=== PATIENT | female | born 1995 | race Caucasian/White ===

== ENCOUNTER 2017-06-03 09:23 | Emergency (ER) | payer OTHER ==
[~2017-06-03] VITALS: Ht 167.6 cm; Wt 99.8 kg
[2017-06-03 09:47] LABS: BILIRUBIN,URINE NEGATIVE (NEGATIVE); KETONES,URINE NEGATIVE (NEGATIVE); LEUKOCYTE ESTERASE ,URINE 1+ (NEGATIVE); NITRITE,URINE NEGATIVE (NEGATIVE); PH,URINE 6.5 (5-9); PROTEIN,URINE 2+ (NEGATIVE); UROBILINOGEN,URINE NORMAL (NORMAL)
[2017-06-03 09:55] LABS: WBC,URINE RARE /HPF
[2017-06-03] MEDS ORDERED: [UNRECOGNIZED DRUG - OTHER] (10:06)
[2017-06-03] MEDS ORDERED: AMIT10TA6 PO (10:06)
[2017-06-03] MEDS ORDERED: BUTA1CAP39 PO (10:06)
[2017-06-03] MEDS ORDERED: BIRTHCONTROL (10:06)
[2017-06-03 10:22] LABS: BASOPHILS % (AUTO) 0 % (0-10); EOSINOPHILS # (AUTO) 0.2 10^3/uL (0.0-0.3); EOSINOPHILS % (AUTO) 2 % (0-10); LYMPHOCYTES % (AUTO) 23 % (12-44); MEAN CORPUSCULAR HEMOGLOBIN 30 PG (25-34); MEAN CORPUSCULAR HGB CONC 34 G/DL (32-36); MEAN CORPUSCULAR VOLUME 89 FL (80-99); MEAN PLATELET VOLUME 9.9 FL (7.4-10.4); MONOCYTES # (AUTO) 0.4 X 10^3 (0.0-1.0); MONOCYTES % (AUTO) 5 % (0-12); NEUTROPHILS # (AUTO) 5.8 X 10^3 (1.8-7.8); NEUTROPHILS % (AUTO) 69 % (42-75); PLATELET COUNT 232 10^3/uL (130-400); RED CELL DISTRIBUTION WIDTH 12.2 % (10.0-14.5); WHITE BLOOD COUNT 8.4 10^3/uL (4.3-11.0)
[2017-06-03 10:34] LABS: ALANINE AMINOTRANSFERASE 22 U/L (0-55); ALBUMIN 3.8 GM/DL (3.2-4.5); ANION GAP 8 MMOL/L (5-14); ASPARTATE AMINO TRANSFERASE 21 U/L (5-34); BILIRUBIN,TOTAL 0.3 MG/DL (0.1-1.0); BLOOD UREA NITROGEN 8 MG/DL (7-18); BUN/CREATININE RATIO 13; CALCIUM 8.9 MG/DL (8.5-10.1); CARBON DIOXIDE 22 MMOL/L (21-32); CHLORIDE 109 MMOL/L (98-107); CREATININE SERUM 0.64 MG/DL (0.60-1.30); GFR ESTIMATED > 60; GLUCOSE 98 MG/DL (70-105); POTASSIUM 4.1 MMOL/L (3.6-5.0); SODIUM 139 MMOL/L (135-145); TOTAL PROTEIN 7.4 GM/DL (6.4-8.2)
[2017-06-03 10:49] LABS: ERYTHROCYTE SEDIMENTATION RATE 15 MM/HR (0-20)
[2017-06-03] MEDS ORDERED: KETOROLAC 30 MG/ML VIAL IVP ONE (11:30)
--- NOTE | 2017-06-03 11:41 | Diagnostic Imaging Report ---
INDICATION: Left-sided back pain x2 days with no known injury.. TECHNIQUE: Supine and upright view of the abdomen 11:42 AM CORRELATION STUDY: None FINDINGS: Lung bases are clear. There are few gas-filled small bowel left mid abdomen. Occasional air-fluid levels noted. However, there is gas and stool within the colon level of the distal colon. No evidence to suggest high degree bowel obstruction. No definitive pathologic intraabdominal calcifications. Asymmetric disc space narrowing. IMPRESSION: 1. Few mildly prominent gas filled loops of small bowel with air-fluid levels left mid abdomen may reflect mild ileus pattern. High degree bowel obstruction does not appear to be present at this time. Followup imaging if clinically warranted. Dictated by: Dictated on workstation # [id number]
[2017-06-03] MEDS ORDERED: TRAM-42 PO (11:56)
--- NOTE | 2017-06-03 11:57 | ED Back Pain ---
General Chief Complaint: Back Problems Stated Complaint: LEFT FLANK PAIN Nursing Triage Note: PT CO OF L FLANK PAIN, STATES PAIN STARTED YESTERDAY, WAS SEEN AT [facility] AND DID NOT HAVE KIDNEY STONE. WAS GIVEN PHENERGAN FOR NAUSEA. Nursing Sepsis Screen: No Definite Risk Source of Information: Patient Exam Limitations: No Limitations History of Present Illness Time Seen by Provider: 09:28 Initial Comments This 27-year-old woman presents to emergency room with complaints of pain in the left lower back, left flank, and left abdomen. The left-sided abdominal pain is chronic, and she would not have presented for the abdominal pain alone. It is the flank and back pain that brings her to the emergency room. She was actually seen at [facility] 2 days ago not long after onset and had CT imaging performed. Request of those records has been faxed. Pain is worse with movement and position changes. Patient has a history of microscopic colitis for which she sees Dr. Lambert. Her primary care provider is Sherry Flores at [facility]. Pain has been present for 3 days. She denies any injury. She denies any urinary changes. Her LMP was about 3 weeks ago. Blood was noted in her UA but she is starting her menstrual cycle. Patient has been taking promethazine for nausea without [facility] Patient has had some problems with constipation in recent past. She took magnesium citrate to help with this. She reports having approximately 20 bowel movements in the last 3 days that were watery in nature. She denies any blood in her stools. Allergies and Home Medications Allergies Coded Allergies: Sulfa (Sulfonamide Antibiotics) (Verified Allergy, Mild, 06/03/17) hyoscyamine (Verified Allergy, Mild, 06/03/17) linaclotide (Verified Allergy, Mild, 06/03/17) milk (Verified Allergy, Mild, 06/03/17) Home Medications Amitriptyline HCl 10 Mg Tablet, Unknown Dose PO, (Reported) Butalb/Acetaminophen/Caffeine 1 Each Capsule, Unknown Dose PO, (Reported) Tramadol HCl 50 Mg Tablet, 50 MG PO QID PRN for PAIN-MILD TO MODERATE, #10 Prescribed by: NATHAN FINLEY on 06/03/17 1156 [Birthcontrol] , Unknown Dose, (Reported) [Lyahada] , Unknown Dose, (Reported) Constitutional: no symptoms reported EENTM: no symptoms reported Respiratory: no symptoms reported Cardiovascular: no symptoms reported Gastrointestinal: see HPI Genitourinary: no symptoms reported : No Musculoskeletal: see HPI Skin: no symptoms reported Psychiatric/Neurological: No Symptoms Reported Past Khcgsmn-Msacpf-Jhyeid Hx Patient Social History Alcohol Use: Denies Use Recreational Drug Use: No Smoking Status: Never a Smoker Recent Foreign Travel: No Contact w/Someone Who Travel: No Recent Infectious Disease Expo: No Recent Hopitalizations: No Seasonal Allergies Seasonal Allergies: No Surgeries HX Surgeries: Yes Surgeries: Abdominal (Colonoscopies), Orthopedic (Laminectomy) Respiratory Hx Respiratory Disorders: No Cardiovascular Hx Cardiac Disorders: No Neurological Hx Neurological Disorders: Yes Neurological Disorders: Headaches /Migraines Reproductive System : No Genitourinary Hx Genitourinary Disorders: No Gastrointestinal Hx Gastrointestinal Disorders: Yes (Chronic abdominal pain) Gastrointestinal Disorders: Colitis (Microscopic) Endocrine Hx Endocrine Disorders: No HEENT HX ENT Disorders: No Cancer Hx Cancer: No Psychosocial Hx Psychiatric Problems: Yes Behavioral Health Disorders: Anxiety Integumentary HX Skin/Integumentary Disorder: No Physical Exam Vital Signs Vital Sign - Last 12Hours 06/03/17 09:25 Temp 97.4 Pulse 88 Resp 18 B/P (MAP) 149/94 Pulse Ox 100 O2 Delivery Room Air Capillary Refill : Less Than 3 Seconds General Appearance: No Apparent Distress, WD/WN HEENT: PERRL/EOMI, Normal ENT Inspection, Pharynx Normal Neck: Normal Inspection Cardiovascular: Regular Rate, Rhythm, No Edema, No Murmur Respiratory: Lungs Clear, Normal Breath Sounds, No Accessory Muscle Use, No Respiratory Distress Gastrointestinal: Normal Bowel Sounds, No Organomegaly, Soft, Tenderness (Mild throughout the left abdomen) Back: Normal Inspection, Other (Tenderness in the left lower back paraspinous muscles) Extremity: Normal Capillary Refill, Normal Inspection Neurologic/Psychiatric: Alert, Oriented x3, No Motor/Sensory Deficits, Normal Mood/Affect, regional office coordinator II-XII Norm as Tested, Abnormal Cerebellar Tests Skin: Normal Color, Warm/Dry Progress/Results/Core Measures Results/Orders Lab Results Laboratory Tests Test 06/03/17 09:30 06/03/17 09:35 Range/Units Urine Color RED H Urine Clarity VERY CLOUDY H Urine pH 6.5 5-9 Urine Specific Antimony 1.020 1.016-1.022 Urine Protein 2+ H NEGATIVE Urine Glucose (UA) NEGATIVE NEGATIVE Urine Ketones NEGATIVE NEGATIVE Urine Nitrite NEGATIVE NEGATIVE Urine Bilirubin NEGATIVE NEGATIVE Urine Urobilinogen NORMAL NORMAL MG/DL Urine Leukocyte Esterase 1+ H NEGATIVE Urine RBC (Auto) 5+ H NEGATIVE Urine RBC TNTC H /HPF Urine WBC RARE /HPF Urine Squamous Epithelial Cells 5-10 /HPF Urine Crystals NONE /LPF Urine Bacteria FEW H /HPF Urine Casts NONE /LPF Urine Mucus NEGATIVE /LPF Urine Culture Indicated NO White Blood Count 8.4 4.3-11.0 10^3/uL Red Blood Count 4.80 4.35-5.85 10^6/uL Hemoglobin 14.5 11.5-16.0 G/DL Hematocrit 43 35-52 % Mean Corpuscular Volume 89 80-99 FL Mean Corpuscular Hemoglobin 30 25-34 PG Mean Corpuscular Hemoglobin Concent 34 32-36 G/DL Red Cell Distribution Width 12.2 10.0-14.5 % Platelet Count 232 130-400 10^3/uL Mean Platelet Volume 9.9 7.4-10.4 FL Neutrophils (%) (Auto) 69 42-75 % Lymphocytes (%) (Auto) 23 12-44 % Monocytes (%) (Auto) 5 0-12 % Eosinophils (%) (Auto) 2 0-10 % Basophils (%) (Auto) 0 0-10 % Neutrophils # (Auto) 5.8 1.8-7.8 X 10^3 Lymphocytes # (Auto) 2.0 1.0-4.0 X 10^3 Monocytes # (Auto) 0.4 0.0-1.0 X 10^3 Eosinophils # (Auto) 0.2 0.0-0.3 10^3/uL Basophils # (Auto) 0.0 0.0-0.1 10^3/uL Erythrocyte Sedimentation Rate 15 0-20 MM/HR Sodium Level 139 135-145 MMOL/L Potassium Level 4.1 3.6-5.0 MMOL/L Chloride Level 109 H 98-107 MMOL/L Carbon Dioxide Level 22 21-32 MMOL/L Anion Gap 8 5-14 MMOL/L Blood Urea Nitrogen 8 7-18 MG/DL Creatinine 0.64 0.60-1.30 MG/DL Estimat Glomerular Filtration Rate > 60 BUN/Creatinine Ratio 13 Glucose Level 98 70-105 MG/DL Calcium Level 8.9 8.5-10.1 MG/DL Total Bilirubin 0.3 0.1-1.0 MG/DL Aspartate Amino Transf (AST/SGOT) 21 5-34 U/L Alanine Aminotransferase (ALT/SGPT) 22 0-55 U/L Alkaline Phosphatase 86 40-136 U/L C-Reactive Protein High Sensitivity 1.20 H 0.00-0.50 MG/DL Total Protein 7.4 6.4-8.2 GM/DL Albumin 3.8 3.2-4.5 GM/DL Lipase 28 8-78 U/L My Orders Orders - NATHAN HOWELL MD Ua Culture If Indicated (06/03/17 09:28) Cbc With Automated Diff (06/03/17 10:13) Comprehensive Metabolic Panel (06/03/17 10:13) Hs C Reactive Protein (06/03/17 10:13) Erythrocyte Sedimentation Rate (06/03/17 10:13) Urine Bedside (06/03/17 10:13) Abdomen, Flat & Upright/Decub (06/03/17 11:18) Lipase (06/03/17 11:18) Ketorolac Injection (Toradol Injection) (06/03/17 11:30) [employer] Director Ed (06/03/17 ) Medications Given in ED Vital Signs/I&O Vital Sign - Last 12Hours 06/03/17 06/03/17 09:25 12:17 Temp 97.4 Pulse 88 72 Resp 18 18 B/P (MAP) 149/94 Pulse Ox 100 100 O2 Delivery Room Air Blood Pressure Mean: 112 Point of Care Testing Urine -Bedside: Negative Progress Note : Progress Note Imaging report from [facility] was reviewed. There were some noncritical abnormal findings including borderline mesenteric adenopathy, and some air-fluid levels within the small bowel without evidence of obstruction. Labs were unremarkable except for UA which was felt to be contaminated by menstrual blood. Patient's back pain is likely musculoskeletal in nature based on exam. Abdominal x-ray performed today was consistent with CT findings. Patient was treated with Toradol and dismissed with instructions to follow-up with her kid club attendant and primary care provider. Diagnostic Imaging Diagonstic Imaging: Xray Plain Films/CT/US/NM/MRI: abdomen, pelvis Comments NAME: OSVALDO STOUT REC#: [id number] PT STATUS: DEP ER : 1995 PHYSICIAN: NATHAN HOWELL MD ADMIT DATE: 06/03/17/ER Signed Date of Exam: 06/03/17 ABDOMEN, FLAT & UPRIGHT/DECUB INDICATION: Left-sided back pain x2 days with no known injury.. TECHNIQUE: Supine and upright view of the abdomen 11:42 AM CORRELATION STUDY: None FINDINGS: Lung bases are clear. There are few gas-filled small bowel left mid abdomen. Occasional air-fluid levels noted. However, there is gas and stool within the colon level of the distal colon. No evidence to suggest high degree bowel obstruction. No definitive pathologic intraabdominal calcifications. Asymmetric disc space narrowing. IMPRESSION: 1. Few mildly prominent gas filled loops of small bowel with air-fluid levels left mid abdomen may reflect mild ileus pattern. High degree bowel obstruction does not appear to be present at this time. Followup imaging if clinically warranted. Dictated by: Dictated on workstation # [id number] Dict: 06/03/17 1131 Trans: 06/03/17 1412 Interpreted by: JANET CRANE DO Electronically signed by: JANET CRANE DO 06/03/17 1412 Departure Impression Impression: Primary Impression: Low back pain Qualified Codes: M54.5 - Low back pain Additional Impression: Chronic abdominal pain Disposition: 01 HOME, SELF-CARE Condition: Improved Departure-Patient Inst. Decision time for Depature: 11:55 Referrals: [facility] (PCP/Family) Primary Care Physician Patient Instructions: Low Back Pain (DC) Add. Discharge Instructions: Follow-up with Dr. Lambert and your primary care provider as soon as possible. Call tomorrow for an appointment and to provide an update. You may use Ultram (tramadol) as prescribed along with Tylenol. Return to the ER symptoms worsen. Clear liquid diet until pain improves. All discharge instructions reviewed with patient and/or family. Voiced understanding. Scripts Tramadol HCl (Ultram) 50 Mg Tablet 50 MG PO QID Y for PAIN-MILD TO MODERATE, #10 TAB Prov: NATHAN HOWELL MD 06/03/17 NATHAN HOWELL MD Jun 03, 2017 11:57
[2017-06-03 12:17] VITALS: BP 133/82
--- OUTSIDE RECORDS SUMMARY | 2017-06-04 15:51 | XMS REPORT ---
Author Author PENELOPE TURK Organization [employer] Address Unknown Phone Unavailable Care Team Providers Care System Software Developer Name Role Phone PENELOPE TURK CP Unavailable Allergies, Adverse Reactions, Alerts Substance Reaction Event Type Linzess anaphylaxis Drug Allergy Hyoscyamine mouth swelling Drug Allergy Bactrim anaphylaxis Drug Allergy Problems Problem Type Condition Code Onset Dates Condition Status Problem Obesity (BMI 30-39.9) E66.9 Active Problem Excessive daytime sleepiness G47.19 Active Problem Snoring R06.83 Active Problem Screen for STD (sexually transmitted disease) Z11.3 Active Problem Encounter for screening for malignant neoplasm of cervix Z12.4 Active Problem Encounter for well woman exam with routine gynecological exam Z01.419 Active Problem Encounter for screening breast examination Z12.39 Active Problem Tonsillar hypertrophy J35.1 Active Problem High-risk sexual behavior Z72.51 Active Problem Encounter for Depo-Provera contraception Z30.42 Active Assessment Chronic headaches R51 Active Problem Chronic headaches R51 Active Problem Anxiety F41.9 Active Assessment Anxiety F41.9 Active Problem Colitis K52.9 Active Medications Medication Code System Code Instructions Start Date End Date Status Dosage Lialda [facility] [address]-70 1.2 GM Orally Once a day February 15, 2016 as directed Depo-Provera [facility] [address]-35 150 MG/ML Intramuscular 1 ml Trazodone HCl [facility] [address]-47 50 mg Orally Once a day Jul 19, 2016 1 tablet at bedtime as needed Sumatriptan Succinate [facility] [address]-12 25 MG Orally Twice a day PRN Jul 1 tablet as needed Procedures Procedure Coding System Code Date Office Visit, Est Pt., Level 3 CPT-4 26397 Jul 19, 2016 Vital Signs Date/Time: Jul 19, 2016 Cardiac Monitoring Heart Rate 70 bpm Weight 220.9 lbs Height 66.5 in BMI 35.12 Index Blood Pressure Diastolic 81 mmHg Blood Pressure Systolic 122 mmHg Results No Known Results Summary Purpose [employer] Submission
--- OUTSIDE RECORDS SUMMARY | 2017-06-04 15:51 | XMS REPORT ---
Author Author TURKPENELOPE Tidwell Organization [facility] [place] Address [address] [place] [address] Care Team Providers Care X Ray Equipment Mechanic Name Role Phone PENELOPE TURK Unavailable PROBLEMS Type Condition ICD9-CM Code [id number] Code Onset Dates Condition Status SNOMED Code Problem Snoring R06.83 Active 77900777 Problem Tonsillar hypertrophy J35.1 Active 36353423 Problem Excessive daytime sleepiness G47.19 Active 958508538537 Problem Encounter for well woman exam with routine gynecological exam Z01.419 Active 289728573 Problem Screen for STD (sexually transmitted disease) Z11.3 Active 939519169 Problem Encounter for Depo-Provera contraception Z30.42 Active 523517589 Problem Encounter for screening breast examination Z12.39 Active 765304837 Problem Encounter for screening for malignant neoplasm of cervix Z12.4 Active 152949158 Problem High-risk sexual behavior Z72.51 Active 915205517 Problem Chronic headaches R51 Active 055740517 Problem Anxiety F41.9 Active 04529543 Problem Colitis K52.9 Active 191274141 Assessment Chronic headaches R51 22 Oct, 2016 Active 61030256 Problem Obesity (BMI 30-39.9) E66.9 Active 782371362 ALLERGIES Substance Reaction Event Type Date Status Linzess anaphylaxis Drug Allergy Oct, Active Hyoscyamine mouth swelling Drug Allergy Oct, Active Bactrim anaphylaxis Drug Allergy Oct, Active SOCIAL HISTORY No smoking Hx information available PLAN OF CARE VITAL SIGNS Height 66.5 in 2016-10-22 Weight 225.7 lbs 2016-10-22 Heart Rate 80 bpm 2016-10-22 Respiratory Rate 18 2016-10-22 BMI 35.88 kg/m2 2016-10-22 Blood pressure systolic 122 mmHg 2016-10-22 Blood pressure diastolic 76 mmHg 2016-10-22 MEDICATIONS Medication Instructions Dosage Frequency Start Date End Date Duration Status Fioricet 325-50-40 MG Orally every 8 hours, PRN 1 tablet as needed OctOct, 10 days Active Lialda 1.2 GM Orally Once a day 1 tablet 24h Jan, Jan, 90 days Active Depo-Provera 150 MG/ML 1 ml Active RESULTS No Results PROCEDURES Procedure Date Ordered Related Diagnosis Body Site Office Visit, Est Pt., Level 3 Oct 22, 2016 IMMUNIZATIONS No Known Immunizations
--- OUTSIDE RECORDS SUMMARY | 2017-06-04 15:51 | XMS REPORT ---
Author Author LEBRON CHAVES [facility] [employer] Address Unknown Phone Unavailable Care Team Providers Care Block Out Machine Operator Name Role Phone LEBRON CHAVES CP Unavailable Allergies, Adverse Reactions, Alerts Substance Reaction Event Type Linzess anaphylaxis Drug Allergy Hyoscyamine mouth swelling Drug Allergy Bactrim anaphylaxis Drug Allergy Problems Problem Type Condition Code Onset Dates Condition Status Problem Anxiety F41.9 Active Problem Chronic headaches R51 Active Problem Colitis K52.9 Active Assessment Major depression F32.9 Active Assessment Anxiety F41.9 Active Assessment Panic attack F41.0 Active Medications No Known Medications Procedures Procedure Coding System Code Date Psych diagnostic evaluation, new patient CPT-4 53296 March 27, 2016 Results No Known Results Summary Purpose [employer] Submission
--- OUTSIDE RECORDS SUMMARY | 2017-06-04 15:51 | XMS REPORT ---
Author PENELOPE Hooper Organization [employer] Address Unknown Phone Unavailable Care Team Providers Care Newscast Producer Name Role Phone PENELOPE TURK CP Unavailable [...] Encounter for Depo-Provera contraception Z30.42 Active Assessment Encounter for Depo-Provera contraception Z30.42 Active Assessment High-risk sexual behavior Z72.51 Active Assessment Encounter for screening breast examination Z12.39 Active Assessment Encounter for well woman exam with routine gynecological exam Z01.419 Active Problem Chronic headaches R51 Active Assessment Encounter for screening for malignant neoplasm of cervix Z12.4 Active Problem Anxiety F41.9 Active Assessment Screen for STD (sexually transmitted disease) Z11.3 Active Problem Colitis K52.9 Active Medications Medication Code System Code Instructions Start Date End Date Status Dosage Lialda [facility] [address]-84 1.2 GM Orally Once a day February 15, 2016 as directed Amitriptyline HCl [facility] 03825983550 25 MG Orally one hour before bed 1 tablet Procedures Procedure Coding System Code Date PELVIC EXAMINATION CPT-4 80808 June 28, 2016 No Charge CPT-4 69616 June 28, 2016 CULTURE, BACTERIA, OTHER CPT-4 32923 June 28, 2016 SPECIMEN HANDLING CPT-4 55607 June 28, 2016 Preventive Care Est Pt. Age 18-39 CPT-4 83316 June 28, 2016 THER/PROPH/DIAG INJ, SC/IM CPT-4 18159 June 28, 2016 VENIPUNCT, ROUTINE* CPT-4 79315 June 28, 2016 BOOTHE VAG, DNA, DIR PROBE CPT-4 98691 June 28, 2016 TRICHOMONAS ASSAY W/OPTIC CPT-4 41221 June 28, 2016 DEPO PROVERA (150 MG/ML) CPT-4 J1050 June 28, 2016 URINE TEST CPT-4 90846 June 28, 2016 Vital Signs Date/Time: June 28, 2016 Cardiac Monitoring Heart Rate 72 bpm Weight 219.0 lbs Height 66.5 in BMI 34.81 Index Blood Pressure Diastolic 78 mmHg Blood Pressure Systolic 118 mmHg Results No Known Results Summary Purpose [employer]Clinical[employer] Submission
--- OUTSIDE RECORDS SUMMARY | 2017-06-04 15:51 | XMS REPORT ---
Author Author PENELOPE TURK Organization [employer] Address Unknown Phone Unavailable Care Team Providers Care Bowling Pin Setters Installer Name Role Phone PENELOPE TURK CP Unavailable Allergies No Known Allergies Problems Problem Type Condition Code Onset Dates [...] Assessment Encounter for Depo-Provera contraception Z30.42 Active Problem Chronic headaches R51 Active Problem Anxiety F41.9 Active Problem Colitis K52.9 Active Medications No Known Medications Procedures Procedure Coding System Code Date DEPO PROVERA (150 MG/ML) CPT-4 J1050 Sep 17, 2016 THER/PROPH/DIAG INJ, SC/IM CPT-4 75569 Sep 17, 2016 URINE TEST CPT-4 72986 Sep 17, 2016 Results No Known Results Summary Purpose [employer] Submission
--- OUTSIDE RECORDS SUMMARY | 2017-06-04 15:52 | XMS REPORT ---
Author Author ROSALEEPENELOPE Organization [facility] Address [address] [place] [address] Care Team Providers Care Locker Attendant Name Role Phone TURKPENELOPE Tidwell Unavailable PROBLEMS Type Condition ICD9-CM Code VKM08-CD Code Onset Dates Condition Status SNOMED Code Problem Snoring R06.83 Active 59571450 Problem Tonsillar hypertrophy J35.1 Active 00128906 Problem Excessive daytime sleepiness G47.19 Active 016853844670 Problem Encounter for well woman exam with routine gynecological exam Z01.419 Active 228094782 Problem Screen for STD (sexually transmitted disease) Z11.3 Active 957229314 Problem Encounter for Depo-Provera contraception Z30.42 Active 705881674 Problem Encounter for screening breast examination Z12.39 Active 565323585 Problem Encounter for screening for malignant neoplasm of cervix Z12.4 Active 141475295 Problem High-risk sexual behavior Z72.51 Active 300232057 Problem Chronic headaches R51 Active 604835708 Problem Anxiety F41.9 Active 96440645 Problem Colitis K52.9 Active 593899810 Assessment Anxiety F41.9 16 Aug, 2016 Active 18086652 Problem Obesity (BMI 30-39.9) E66.9 Active 370529749 ALLERGIES Substance Reaction Event Type Date Status Linzess anaphylaxis Drug Allergy 16 Aug, 2016 Active Hyoscyamine mouth swelling Drug Allergy 16 Aug, 2016 Active Bactrim anaphylaxis Drug Allergy Aug, Active SOCIAL HISTORY No smoking Hx information available PLAN OF CARE VITAL SIGNS Height 66.5 in 2016-08-16 Weight 221.0 lbs 2016-08-16 Heart Rate 72 bpm 2016-08-16 Respiratory Rate 18 2016-08-16 BMI 35.13 kg/m2 2016-08-16 Blood pressure systolic 125 mmHg 2016-08-16 Blood pressure diastolic 77 mmHg 2016-08-16 MEDICATIONS Medication Instructions Dosage Frequency Start Date End Date Duration Status Sumatriptan Succinate 25 MG Orally Twice a day PRN 1 tablet as needed Jul, Active Propranolol HCl 10 mg Orally Twice a day 1 tablet 12h 16 Aug, 2016 30 day(s) Active Lialda 1.2 GM Orally Once a day as directed 24h 17 Jan, 2016 Active Depo-Provera 150 MG/ML 1 ml Active Trazodone HCl 50 mg Orally Once a day 1 tablet at bedtime as needed 24h Jul, 30 day(s) Active RESULTS No Results PROCEDURES Procedure Date Ordered Related Diagnosis Body Site SLEEP STUDY (HOME) 2016-08-16 N/A SLEEP STUDY, UNATTENDED Aug 16, 2016 Office Visit, Est Pt., Level 3 Aug 16, 2016 IMMUNIZATIONS No Known Immunizations
== END 2017-06-03 12:17 | disposition home or self-care (01) ==
LOC: EDUNIT# 09:23 → ER 09:26
DX: M54.5 Low back pain (principal); R10.9 Unspecified abdominal pain; G89.29 Other chronic pain; G43.909 Migraine, unspecified, not intractable, without status migrainosus; F41.9 Anxiety disorder, unspecified; Z87.19 Personal history of other diseases of the digestive system
CPT/HCPCS: 36415; 74020; 80053; 81000; 83690; 84703; 85025; 85652; 86141; 96374; 99282

== ENCOUNTER → 2018-02-18 | Outpatient (CLI) | payer OTHER ==
[~2018-02-18] MED LIST: AMIT10TA6 PO; BIRTHCONTROL; BUTA1CAP39 PO; TRAM-42 PO; [UNRECOGNIZED DRUG - OTHER]
--- NOTE | 2018-02-18 18:51 | Diagnostic Imaging Report ---
PROCEDURE: US OB SINGLE FETUS <14 WKS. TECHNIQUE: Multiple real-time grayscale images were obtained over the gravid uterus in various projections. INDICATION: Undergoing evaluation for size and dates. FINDINGS: There is presence of viable intrauterine . Hilham-rump length is 2.92 cm for an estimated age of 9 weeks 6 days. cardiac activity at 176 beats per minute. No abnormal perigestational fluid collections. Imaging of the adnexa demonstrates nonvisualization of either ovary, could be owing to overlying bowel gas. There is presence of free fluid within the posterior cul-de-sac. IMPRESSION: Findings compatible with early viable intrauterine with estimated age of 9 weeks 6 days for sonographic estimated date of delivery of September 17, 2018. Dictated by: Dictated on workstation # [id number]
== END ==
LOC: RAD 13:52
PROVIDERS: ATTEND Family Medicine
DX: Z34.01 Encounter for supervision of normal first pregnancy, first trimester (principal); Z3A.09 9 weeks gestation of pregnancy
CPT/HCPCS: 76801

== ENCOUNTER → 2018-03-11 | Outpatient (CLI) | payer OTHER ==
--- NOTE | 2018-03-11 16:10 | Diagnostic Imaging Report ---
PROCEDURE: US OB SINGLE FETUS <14 WKS. TECHNIQUE: Multiple real-time grayscale images were obtained over the gravid uterus in various projections. INDICATION: heart tones not detected. COMPARISON: None FINDINGS: There is a single intrauterine gestation demonstrated. Based on today's ultrasound measurements estimated gestational age is about 13 weeks 2 days. No outlying or abnormal measurements are demonstrated today. Cardiac activity is detected with the heart rate of 160 beats per minute. The ovaries are not demonstrated. There is no free fluid. IMPRESSION: Single live intrauterine gestation dating 13 weeks 2 days based on today's ultrasound. Cardiac activity is present with a heart rate of 160 beats per minute. No acute abnormality is suspected. Dictated by: Dictated on workstation # [id number]
== END ==
LOC: RAD 15:18
PROVIDERS: ATTEND Family Medicine
DX: Z34.91 Encounter for supervision of normal pregnancy, unspecified, first trimester (principal); Z3A.13 13 weeks gestation of pregnancy
CPT/HCPCS: 76801

== ENCOUNTER → 2018-04-23 | Outpatient (CLI) | payer OTHER ==
--- NOTE | 2018-04-23 17:18 | Diagnostic Imaging Report ---
INDICATION: survey. TECHNIQUE: Multiple real-time grayscale images were obtained over the gravid uterus. COMPARISON: None COMPARISON: 03/11/2018. FINDINGS: Single live intrauterine is identified with a heart rate of 136 beats per minute. The placenta is posterior fundal and has a normal appearance. Amniotic fluid volume is normal. The fetus is in breech presentation. The cord insertion, four-chamber heart, and brain were poorly visualized due to position. However, no obvious anomalies are identified. The cervix measures 4 cm and is closed. IMPRESSION: 1. Limited examination due to position. No obvious anomalies are identified. Consider follow-up. 2. Single live intrauterine at 20 weeks 1 day with a due date of 09/09/2018. 3. Breech presentation. Biometrical measurements are as follows: Biparietal 4.51 cm, age 19 weeks 5 days. Head circumference 16.67 cm, age 19 weeks 3 days. Abdominal circumference 16.55 cm, age 21 weeks 5 days. Femur length 3.02 cm, age 19 weeks 3 days. Sonographic estimate age: 20 weeks 1 days. Sonographic estimated date of delivery: 09/09/2018. Estimated Weight: 352 gm (+/- 51 gm). LMP percentile: 98%. heart rate: 136 beats per minute. number: 1 of 1. Dictated by: Dictated on workstation # [id number]
== END ==
LOC: RAD 15:32
PROVIDERS: ATTEND Family Medicine
DX: O32.1XX0 Maternal care for breech presentation, not applicable or unspecified (principal); Z3A.20 20 weeks gestation of pregnancy
CPT/HCPCS: 76805

== ENCOUNTER 2018-06-27 11:59 | Emergency (ER) | payer OTHER ==
[~2018-06-27] VITALS: Ht 168.9 cm; Wt 117.9 kg
--- OUTSIDE RECORDS SUMMARY | 2018-06-27 12:05 | XMS REPORT ---
Author Author BENOIT MACHADO Organization [facility] Address [address] [place] [address] Care Team Providers Care Machine Zipper Trimmer Name Role Phone BENOIT MACHADO Unavailable PROBLEMS Type Condition ICD9-CM Code [id number] Code Onset Dates Condition Status SNOMED Code Problem Anxiety F41.9 Active 43596658 Problem Tonsillar hypertrophy J35.1 Active 86092243 Problem Obesity (BMI 30-39.9) E66.9 Active 585930086 Problem Colitis K52.9 Active 727967340 Problem Chronic headaches R51 Active 023165476 Problem Dysmenorrhea N94.6 Active 899249079 Problem Other chronic pain G89.29 Active 82630697 Problem Snoring R06.83 Active 60548308 Problem Excessive daytime sleepiness G47.19 Active 033057903070 Problem Lumbago with sciatica, left side M54.42 Active 970011760 Problem Major depression F32.9 Active 185194407 ALLERGIES Substance Reaction Event Type Date Status Linzess anaphylaxis Drug Allergy Jan, Active Hyoscyamine mouth swelling Drug Allergy Jan, Active Dairy-Digestive Unknown Drug Allergy Jan, Active Bactrim anaphylaxis Drug Allergy Jan, Active ENCOUNTERS Encounter Location Date Diagnosis [facility] [id number], [place] [address] May, [facility] [address] [id number], [place] [address] May, BMI 40.0-44.9, adult Z68.41 and Second trimester Z34.92 [facility] [address], [place] [address] May, Dysuria R30.0 [facility] [address] [place] [address]- [address] May, Second trimester Z34.92 [facility] [address] [address] March, Second trimester Z34.92 [facility] [address] [address] Mar, First trimester Z34.90 [facility] [address] [address] Jan, [facility] [address] [address] Jan, Normal , first Z34.00 [place] [address] [address] Jan, [facility] [address] [address] Jan, Encounter for test, result positive Z32.01 ; Viral URI J06.9 and Cough R05 [facility] [address] [id number] 02 Jan, 2018 Encounter for dental examination Z01.20 [place] [address] [address] Jan, Encounter for dental examination Z01.20 [place] [address] [address]- 160[address] Jan, Major depression F32.9 ; Anxiety F41.9 ; Excessive daytime sleepiness G47.19 ; Snoring R06.83 and Tonsillar hypertrophy J35.1 [facility] [address] [place] [address] Oct, Abdominal pain R10.9 ; Acute nasopharyngitis (common cold) J00 and Dysmenorrhea N94.6 [place] [address] [address] Aug, Threatened miscarriage O20.0 [place] [id number] [place] [address]10- 7[address] Aug, Lumbago with sciatica, left side M54.42 ; Other chronic pain G89.29 ; Anxiety F41.9 and Obesity (BMI 30-39.9) E66.9 [facility] [id number] [place] [address] 8[address]19- 6956 Aug, Threatened miscarriage O20.0 [facility] [address] [address]- [address] Aug, Threatened miscarriage O20.0 [place] [address] [address]- 5380 Aug, Threatened miscarriage O20.0 [place] [id number] [place] [address] 75084- 9006 Aug, Threatened miscarriage O20.0 [place] [id number] [place] [address] 90550- 7580 Aug, Threatened miscarriage O20.0 [place] [id number] [place] [address] 12254- 8225 Aug, [place] [id number] [place] [address] 7[address]19- 2011 Aug, Encounter for test, result unknown Z32.00 [place] [id number] [place] [address]34- 1861 Aug, [place] [id number] [place] [address] 47770- 1506 Mar, Anxiety F41.9 ; Colitis K52.9 ; Urinary frequency R35.0 ; Abnormal menses N92.6 ; Nausea R11.0 ; Chronic headaches R51 ; Major depression F32.9 and Obesity (BMI 30-39.9) E66.9 [place] [id number] [place] [address] 54690- 9126 Jan, Anxiety F41.9 [place] [id number] [place] [address] 71337- 1397 13 Dec, 2016 control counseling Z30.9 [place] [address] [address]- 74[address] 10 Dec, 2016 control counseling Z30.9 [place] [address] 02063- 0181 Oct, Chronic headaches R51 and Colitis K52.9 [place] [address] [address]- 5965 18 Aug, 2016 Encounter for Depo-Provera contraception Z30.[address] [address]- [address] 16 Aug, 2016 Anxiety F41.9 ; Chronic headaches R51 and Snoring R06.[address] [address]- [address] Jul, Chronic headaches R51 and Anxiety F41.9 [place] [address] [place] [address] 00863- 2126 May, Encounter for well woman exam with routine gynecological exam Z01.419 ; Screen for STD (sexually transmitted disease) Z11.3 ; Encounter for screening for malignant neoplasm of cervix Z12.4 ; High-risk sexual behavior Z72.51 ; Encounter for Depo-Provera contraception Z30.42 and Encounter for screening breast examination Z12.39 [place] [id number] [place] [address] 94260- 4148 May, [place] [id number] [place] [address] 56860- 478[address] May, Anxiety F41.9 ; Chronic headaches R51 ; Colitis K52.9 ; Tonsillar hypertrophy J35.1 ; Excessive daytime sleepiness G47.19 ; Snoring R06.83 and Obesity (BMI 30-39.9) E66.9 [place] [id number] [place] [address] 05923- 2503 March, Anxiety F41.9 [facility] [id number], [place] [address] Mar, Colitis K52.9 ; Anxiety F41.9 and Chronic headaches R51 [place] [id number], [place] [address] Mar, Anxiety F41.9 ; Panic attack F41.0 and Major depression F32.9 [place] [address], [place] [address] Jan, Migraines G43.909 and Colitis K52.9 IMMUNIZATIONS No Known Immunizations SOCIAL HISTORY Never Assessed REASON FOR VISIT OB-intake -- dang schaffer PLAN OF CARE Activity Details Follow Up 4 Weeks Reason: VITAL SIGNS Height 66.5 in 2018-02-11 Weight 236.0 lbs 2018-02-11 Temperature 98.7 degrees Fahrenheit 2018-02-11 BMI 37.521 kg/m2 2018-02-11 Blood pressure systolic 122 mmHg 2018-02-11 Blood pressure diastolic 78 mmHg 2018-02-11 MEDICATIONS Medication Instructions Dosage Frequency Start Date End Date Duration Status Complete 14-0.4 MG Active Fioricet 50-300-40 MG Orally every 4 hrs 1 capsule as needed 4h Not-Taking Junel 1.530 1.5-30 MG-MCG Orally Once a day 1 tablet 24h Mar, 30 day(s) Not-Taking Ondansetron 8 MG Orally 3 times a day prn 1 tablet on the tongue and allow to dissolve Mar, 10 days Not-Taking Sumatriptan Succinate 25 MG Orally Twice a day PRN 1 tablet as needed Jul, Not-Taking Amitriptyline HCl 25 MG Orally Once a day 1 tablet 24h Jan, 30 day(s) Not-Taking Lialda 1.2 GM Orally Once a day 1 tablet 24h Not-Taking RESULTS No Results PROCEDURES Procedure Date Ordered Result Body Site RUBELLA ANTIBODY February 11, 2018 URINALYSIS, AUTO, W/O SCOPE February 11, 2018 No Charge February 11, 2018 VENIPUNCT, ROUTINE* February 11, 2018 TRICHOMONAS ASSAY W/OPTIC February 11, 2018 CULTURE, BACTERIA, OTHER February 11, 2018 COMPLETE CBC W/AUTO DIFF WBC February 11, 2018 ASSAY THYROID STIM HORMONE February 11, 2018 URINE CULTURE/COLONY COUNT February 11, 2018 RBC ANTIBODY SCREEN February 11, 2018 BLOOD TYPING, ABO February 11, 2018 BLOOD TYPING, RH (D) February 11, 2018 INSTRUCTIONS MEDICATIONS ADMINISTERED No Known Medications MEDICAL (GENERAL) HISTORY Type Description Date Medical History microscopic colitis 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
--- OUTSIDE RECORDS SUMMARY | 2018-06-27 12:05 | XMS REPORT ---
Author Author VIRGINIA LUONG [facility] Address [address] [place] [address] Care Team Providers Care Transmission Technician Name Role Phone VIRGINIA LUONG Unavailable PROBLEMS Type Condition ICD9-CM Code [id number] Code Onset Dates Condition Status SNOMED Code Problem Anxiety F41.9 Active 92841735 Problem Tonsillar hypertrophy J35.1 Active 53687607 Problem Obesity (BMI 30-39.9) E66.9 Active 188364295 Problem Colitis K52.9 Active 097262659 Problem Chronic headaches R51 Active 144080073 Problem Dysmenorrhea N94.6 Active 094568881 Problem Other chronic pain G89.29 Active 07005825 Problem Snoring R06.83 Active 11585589 Problem Excessive daytime sleepiness G47.19 Active 470931754561 Problem Lumbago with sciatica, left side M54.42 Active 455879571 Problem Major depression F32.9 Active 096400013 ALLERGIES No Information ENCOUNTERS Encounter Location Date Diagnosis [facility] [address] [place] [address]- [address] March, [facility] [id number] [place] [address] 46348- 0196 Mar, First trimester Z34.90 [facility] [id number] [place] [address] 85949- 9343 16 Jan, 2018 [facility] [id number] [place] [address] 11308- 0781 Jan, Normal , first Z34.00 [facility] [id number] [place] [address] 92847- 2915 Jan, [facility] [id number] [place] [address] -[address]61 Jan, Encounter for test, result positive Z32.01 ; Viral URI J06.9 and Cough R05 [facility] [address] [id number] 02 Jan, 2018 Encounter for dental examination Z01.20 [facility] [address] [address]- [address] Jan, Encounter for dental examination Z01.20 [facility] [address] [address]- [address] Jan, Major depression F32.9 ; Anxiety F41.9 ; Excessive daytime sleepiness G47.19 ; Snoring R06.83 and Tonsillar hypertrophy J35.1 [facility] [address] [address] Oct, Abdominal pain R10.9 ; Acute nasopharyngitis (common cold) J00 and Dysmenorrhea N94.6 [facility] [address] [address]- [address] Aug, Threatened miscarriage O20.0 [place] [address] [address]- [address]404 Aug, Lumbago with sciatica, left side M54.42 ; Other chronic pain G89.29 ; Anxiety F41.9 and Obesity (BMI 30-39.9) E66.9 [facility] [address] [address]- [address] Aug, Threatened miscarriage O20.0 [facility] [address] 73775- 7[address] Aug, Threatened miscarriage O20.0 [place] [address] 61338- 8436 Aug, Threatened miscarriage O20.0 [facility] [address] [address]- 5388 Aug, Threatened miscarriage O20.0 [place] [address] 13751- [address]10 25 Aug, 2017 Threatened miscarriage O20.0 [place] [address] 765[address]- 5410 20 Aug, 2017 [place] [address] 66[address]- 8077 18 Aug, 2017 Encounter for test, result unknown Z32.00 [place] [address] 9[address]39- 3863 12 Aug, 2017 [place] [address] [address]- [address] Mar, Anxiety F41.9 ; Colitis K52.9 ; Urinary frequency R35.0 ; Abnormal menses N92.6 ; Nausea R11.0 ; Chronic headaches R51 ; Major depression F32.9 and Obesity (BMI 30-39.9) E66.9 [place] [address] 19[address]- 1617 Jan, Anxiety F41.9 [place] [address] [address]32- 1433 Dec, control counseling Z30.9 [place] [address] 16941- 0556 Dec, control counseling Z30.9 [place] [address] 82[address]- 95[address] Oct, Chronic headaches R51 and Colitis K52.9 [place] [address] 300[address]- 5602 18 Aug, 2016 Encounter for Depo-Provera contraception Z30.42 [place] [address] 058[address]- 1658 16 Aug, 2016 Anxiety F41.9 ; Chronic headaches R51 and Snoring R06.83 [place] [address] [address]- 3524 Jul, Chronic headaches R51 and Anxiety F41.9 [place] [address] 70[address]- 8677 May, Encounter for well woman exam with routine gynecological exam Z01.419 ; Screen for STD (sexually transmitted disease) Z11.3 ; Encounter for screening for malignant neoplasm of cervix Z12.4 ; High-risk sexual behavior Z72.51 ; Encounter for Depo-Provera contraception Z30.42 and Encounter for screening breast examination Z12.39 [place] [address] 88[address]- 5124 May, [address] [address]- [address] May, Anxiety F41.9 ; Chronic headaches R51 ; Colitis K52.9 ; Tonsillar hypertrophy J35.1 ; Excessive daytime sleepiness G47.19 ; Snoring R06.83 and Obesity (BMI 30-39.9) E66.9 [place] [id number] [place] [address] 22007- 0275 March, Anxiety F41.9 [place] [address] 92553- 1273 Mar, Colitis K52.9 ; Anxiety F41.9 and Chronic headaches R51 [place] [id number] [place] [address] 30184- 4624 Mar, Anxiety F41.9 ; Panic attack F41.0 and Major depression F32.9 [place] [id number] [place] [address] 00918- 3119 Jan, Migraines G43.909 and Colitis K52.9 IMMUNIZATIONS No Known Immunizations SOCIAL HISTORY Never Assessed REASON FOR VISIT Deferred Lab Order PLAN OF CARE VITAL SIGNS MEDICATIONS Unknown Medications RESULTS No Results PROCEDURES No Known procedures INSTRUCTIONS MEDICATIONS ADMINISTERED No Known Medications MEDICAL (GENERAL) HISTORY Type Description Date Medical History microscopic colitis 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
--- OUTSIDE RECORDS SUMMARY | 2018-06-27 12:05 | XMS REPORT ---
Author Author ROSALEEPENELOPE Organization [facility] Address [address] [place] [address] Care Team Providers Care Remote Mortgage Underwriter Name Role Phone PENELOPE TURK Unavailable PROBLEMS Type Condition ICD9-CM Code ADC07-HT Code Onset Dates Condition Status SNOMED Code Problem Obesity (BMI 30-39.9) E66.9 Active 415315666 Problem Encounter for screening breast examination Z12.39 Active 517345776 Problem Encounter for screening for malignant neoplasm of cervix Z12.4 Active 951639981 Problem Major depression F32.9 Active 840780328 Problem Abnormal menses N92.6 Active 604319000 Problem Screen for STD (sexually transmitted disease) Z11.3 Active 205118295 Problem Encounter for Depo-Provera contraception Z30.42 Active 929989233 Problem Encounter for well woman exam with routine gynecological exam Z01.419 Active 666887412 Problem High-risk sexual behavior Z72.51 Active 146876925 Problem Colitis K52.9 Active 977691995 Problem Excessive daytime sleepiness G47.19 Active 864401509130 Problem Chronic headaches R51 Active 273286533 Problem Snoring R06.83 Active 16254407 Problem Anxiety F41.9 Active 55535940 Problem Tonsillar hypertrophy J35.1 Active 58625947 ALLERGIES No Known Allergies SOCIAL HISTORY No smoking Hx information available PLAN OF CARE VITAL SIGNS MEDICATIONS Medication Instructions Dosage Frequency Start Date End Date Duration Status DELROY 3-0.02 MG Orally Once a day 1 tablet 24h 13 Dec, 2016 28 days Active RESULTS No Results PROCEDURES No Known procedures IMMUNIZATIONS No Known Immunizations
--- OUTSIDE RECORDS SUMMARY | 2018-06-27 12:05 | XMS REPORT ---
Author Author BENOIT MACHADO Organization [facility] Address [address] [place] [address] Care Team Providers Care Business Writer Name Role Phone BENOIT MACHADO Unavailable PROBLEMS Type Condition ICD9-CM Code KEJ29-RE Code Onset Dates Condition Status SNOMED Code Problem Anxiety F41.9 Active 88863566 Problem Tonsillar hypertrophy J35.1 Active 60349943 Problem Obesity (BMI 30-39.9) E66.9 Active 300526808 Problem Colitis K52.9 Active 114697315 Problem Chronic headaches R51 Active 714778862 Problem Dysmenorrhea N94.6 Active 541314271 Problem Other chronic pain G89.29 Active 38158206 Problem Snoring R06.83 Active 50959573 Problem Excessive daytime sleepiness G47.19 Active 501573317147 Problem Lumbago with sciatica, left side M54.42 Active 983958611 Problem Major depression F32.9 Active 591797705 ALLERGIES No Information ENCOUNTERS Encounter Location Date Diagnosis [facility] [address] [place] [address]- [address] May, [facility] [id number] [place] [address] 89121- 0029 May, BMI 40.0-44.9, adult Z68.41 and Second trimester Z34.92 [facility] [id number] [place] [address] 15274 -5004 May, Dysuria R30.0 [facility] [id number] [place] [address] 29764- 6805 May, Second trimester Z34.92 [facility] [id number] [place] [address] 38829- 5790 March, Second trimester Z34.92 [place] [address] [id number] [place] [address] 51813- 2631 Mar, First trimester Z34.90 [place] [address] 0[address]- [address] 16 Jan, 2018 [place] [address] 33166- 8371 14 Jan, 2018 Normal , first Z34.00 [place] [address] 97842- 3365 27 Jan, 2018 [facility] [place] [address] [address] 21 Jan, 2018 Encounter for test, result positive Z32.01 ; Viral URI J06.9 and Cough R05 [facility] [address] [id number] 02 Jan, 2018 Encounter for dental examination Z01.20 [place] [address] 6[address]- [address] 01 Jan, 2018 Encounter for dental examination Z01.20 [place] [address] 86191- 5274 01 Jan, 2018 Major depression F32.9 ; Anxiety F41.9 ; Excessive daytime sleepiness G47.19 ; Snoring R06.83 and Tonsillar hypertrophy J35.1 [facility] [place] [id number] [place] [address] 75935 -5026 Oct, Abdominal pain R10.9 ; Acute nasopharyngitis (common cold) J00 and Dysmenorrhea N94.6 [place] [address] 32[address]- 2106 Aug, Threatened miscarriage O20.[address] 40[address]- [address]138 Aug, Lumbago with sciatica, left side M54.42 ; Other chronic pain G89.29 ; Anxiety F41.9 and Obesity (BMI 30-39.9) E66.9 [place] [address] 75678- 2831 Aug, Threatened miscarriage O20.0 [place] [address] 56456- 1972 28 Aug, 2017 Threatened miscarriage O20.0 [place] [address] 66230- 9971 Aug, Threatened miscarriage O20.0 [place] [address] 37679- 3831 Aug, Threatened miscarriage O20.0 [place] [address] 14182- 6719 Aug, Threatened miscarriage O20.0 [place] [address] 26779- 6309 Aug, [place] [address] 03104- 4802 18 Aug, 2017 Encounter for test, result unknown Z32.00 [place] [address] 77508- 6191 Aug, [place] [address] 98048- 1324 Mar, Anxiety F41.9 ; Colitis K52.9 ; Urinary frequency R35.0 ; Abnormal menses N92.6 ; Nausea R11.0 ; Chronic headaches R51 ; Major depression F32.9 and Obesity (BMI 30-39.9) E66.9 [place] [address] 35613- 8406 Jan, Anxiety F41.9 [place] [address] 09512- 9411 Dec, control counseling Z30.9 [place] [address] 50823- 4716 Dec, control counseling Z30.9 [place] [address] [place] [id number] [place] [address] 79400- 7854 Oct, Chronic headaches R51 and Colitis K52.9 [place] [address] [id number] [place] [address] 24936- 2241 Aug, Encounter for Depo-Provera contraception Z30.42 [place] [address] 04008- 8201 16 Aug, 2016 Anxiety F41.9 ; Chronic headaches R51 and Snoring R06.83 [place] [address] 22347- 8015 Jul, Chronic headaches R51 and Anxiety F41.9 [place] [address] [id number] [place] [address] 66759- 4761 May, Encounter for well woman exam with routine gynecological exam Z01.419 ; Screen for STD (sexually transmitted disease) Z11.3 ; Encounter for screening for malignant neoplasm of cervix Z12.4 ; High-risk sexual behavior Z72.51 ; Encounter for Depo-Provera contraception Z30.42 and Encounter for screening breast examination Z12.39 [place] [address] [place] [address] [id number] [place] [address] 35547- 3094 May, [place] [address] [place] [address] [id number] [place] [address] 12992- 7169 May, Anxiety F41.9 ; Chronic headaches R51 ; Colitis K52.9 ; Tonsillar hypertrophy J35.1 ; Excessive daytime sleepiness G47.19 ; Snoring R06.83 and Obesity (BMI 30-39.9) E66.9 [place] [address] [place] [address] [id number] [place] [address] 17134- 3128 March, Anxiety F41.9 [place] [address] [place] [address] [id number] [place] [address] 01049- 3926 Mar, Colitis K52.9 ; Anxiety F41.9 and Chronic headaches R51 [facility] [address] [facility] [id number] [address]- 1631 Mar, Anxiety F41.9 ; Panic attack F41.0 and Major depression F32.9 [facility] [address] [facility] [id number] [place] [address]- 2[address] Jan, Migraines G43.909 and Colitis K52.9 IMMUNIZATIONS No Known Immunizations SOCIAL HISTORY Never Assessed REASON FOR VISIT Requests return call PLAN OF CARE VITAL SIGNS MEDICATIONS Unknown [...]
--- OUTSIDE RECORDS SUMMARY | 2018-06-27 12:06 | XMS REPORT ---
Author Author VIRGINIA LUONG [facility] Address [address] [place] [address] Care Team Providers Care Hospital Internship Name Role Phone VIRGINIA LUONG Unavailable PROBLEMS Type Condition ICD9-CM Code [id number] Code Onset Dates Condition Status SNOMED Code Problem Anxiety F41.9 Active 76912528 Problem Tonsillar hypertrophy J35.1 Active 08535165 Problem Obesity (BMI 30-39.9) E66.9 Active 634803828 Problem Colitis K52.9 Active 739553705 Problem Chronic headaches R51 Active 045309946 Problem Dysmenorrhea N94.6 Active 735617659 Problem Other chronic pain G89.29 Active 30692123 Problem Snoring R06.83 Active 50447153 Problem Excessive daytime sleepiness G47.19 Active 271253850629 Problem Lumbago with sciatica, left side M54.42 Active 143863983 Problem Major depression F32.9 Active 118675350 ALLERGIES No Information ENCOUNTERS Encounter Location Date Diagnosis [facility] [address] [place] [address] 22077- 2982 March, [facility] [id number] [place] [address] 44748- 0622 Mar, First trimester Z34.90 [facility] [id number] [place] [address] 34365- 9875 16 Jan, 2018 [facility] [id number] [place] [address] 56922- 2719 Jan, Normal , first Z34.00 [facility] [id number] [place] [address] 44988- 6816 Jan, [facility] [id number] [place] [address] 14034 -7631 Jan, Encounter for test, result positive Z32.01 ; Viral URI J06.9 and Cough R05 [facility] [address] [id number] 02 Jan, 2018 Encounter for dental examination Z01.20 [facility] [address] [address]- [address] Jan, Encounter for dental examination Z01.20 [facility] [address] 82205- 4458 Jan, Major depression F32.9 ; Anxiety F41.9 ; Excessive daytime sleepiness G47.19 ; Snoring R06.83 and Tonsillar hypertrophy J35.1 [facility] [address] [address] Oct, Abdominal pain R10.9 ; Acute nasopharyngitis (common cold) J00 and Dysmenorrhea N94.6 [facility] [address] 97251- 2753 Aug, Threatened miscarriage O20.0 [place] [address] 73158- 9075 Aug, Lumbago with sciatica, left side M54.42 ; Other chronic pain G89.29 ; Anxiety F41.9 and Obesity (BMI 30-39.9) E66.9 [facility] [address] 07499- 2522 Aug, Threatened miscarriage O20.0 [facility] [address] 03806- 5358 Aug, Threatened miscarriage O20.0 [place] [address] 23603- 1626 Aug, Threatened miscarriage O20.0 [facility] [address] 53657- 3384 Aug, Threatened miscarriage O20.0 [place] [address] 69606- 6218 25 Aug, 2017 Threatened miscarriage O20.0 [place] [address] 14713- 8856 20 Aug, 2017 [place] [address] 46463- 8407 18 Aug, 2017 Encounter for test, result unknown Z32.00 [place] [address] 73134- 3809 12 Aug, 2017 [place] [address] 22542- 2527 Mar, Anxiety F41.9 ; Colitis K52.9 ; Urinary frequency R35.0 ; Abnormal menses N92.6 ; Nausea R11.0 ; Chronic headaches R51 ; Major depression F32.9 and Obesity (BMI 30-39.9) E66.9 [place] [address] 04468- 3488 Jan, Anxiety F41.9 [place] [address] 69550- 1273 Dec, control counseling Z30.9 [place] [address] 93383- 6141 Dec, control counseling Z30.9 [place] [address] 76908- 0230 Oct, Chronic headaches R51 and Colitis K52.9 [place] [address] 38920- 7247 18 Aug, 2016 Encounter for Depo-Provera contraception Z30.42 [place] [address] 62946- 5390 16 Aug, 2016 Anxiety F41.9 ; Chronic headaches R51 and Snoring R06.83 [place] [address] 53522- 5578 Jul, Chronic headaches R51 and Anxiety F41.9 [place] [address] 95103- 6455 May, Encounter for well woman exam with routine gynecological exam Z01.419 ; Screen for STD (sexually transmitted disease) Z11.3 ; Encounter for screening for malignant neoplasm of cervix Z12.4 ; High-risk sexual behavior Z72.51 ; Encounter for Depo-Provera contraception Z30.42 and Encounter for screening breast examination Z12.39 [place] [address] 36128- 4684 May, [address] 6[address]10- 7185 May, Anxiety F41.9 ; Chronic headaches R51 ; Colitis K52.9 ; Tonsillar hypertrophy J35.1 ; Excessive daytime sleepiness G47.19 ; Snoring R06.83 and Obesity (BMI 30-39.9) E66.9 [place] [id number] [place] [address] 62425- 6803 March, Anxiety F41.[address] 95705- 2619 Mar, Colitis K52.9 ; Anxiety F41.9 and Chronic headaches R51 [place] [id number] [place] [address] 32004- 6292 Mar, Anxiety F41.9 ; Panic attack F41.0 and Major depression F32.9 [place] [id number] [place] [address] 01711- 1628 Jan, Migraines G43.909 and Colitis K52.9 IMMUNIZATIONS No Known Immunizations SOCIAL HISTORY Never Assessed REASON FOR VISIT Patient Concerns PLAN OF CARE VITAL SIGNS MEDICATIONS Unknown [...]
--- OUTSIDE RECORDS SUMMARY | 2018-06-27 12:06 | XMS REPORT ---
Author Author VIRGINIA LUONG [facility] Address [address] [place] [address] Care Team Providers Care Event Set Up Specialist Name Role Phone VIRGINIA LUONG Unavailable PROBLEMS Type Condition ICD9-CM Code [id number] Code Onset Dates Condition Status SNOMED Code Problem Anxiety F41.9 Active 25563000 Problem Tonsillar hypertrophy J35.1 Active 55938924 Problem Obesity (BMI 30-39.9) E66.9 Active 636732737 Problem Colitis K52.9 Active 921390218 Problem Chronic headaches R51 Active 577833654 Problem Dysmenorrhea N94.6 Active 230330821 Problem Other chronic pain G89.29 Active 03027671 Problem Snoring R06.83 Active 68984201 Problem Excessive daytime sleepiness G47.19 Active 715958333407 Problem Lumbago with sciatica, left side M54.42 Active 802030643 Problem Major depression F32.9 Active 850323096 ALLERGIES Substance Reaction Event Type Date Status Linzess anaphylaxis Drug Allergy Aug, Active Hyoscyamine mouth swelling Drug Allergy Aug, Active Bactrim anaphylaxis Drug Allergy Aug, Active ENCOUNTERS Encounter Location Date Diagnosis [facility] [id number] [address] March, [facility] [address] [place] [address] Mar, First trimester Z34.90 [facility] [address] [address] Jan, [facility] [address] [place] [address] Jan, Normal , first Z34.00 [facility] [address] [place] [address] 150[address] Jan, [facility] [id number] [place] [address] 10199 -0630 Jan, Encounter for test, result positive Z32.01 ; Viral URI J06.9 and Cough R05 [facility] [id number] [place] [address] [id number] 02 Jan, 2018 Encounter for dental examination Z01.20 [facility] [address] 10038- 3811 Jan, Encounter for dental examination Z01.20 [facility] [address] 69900- 0990 Jan, Major depression F32.9 ; Anxiety F41.9 ; Excessive daytime sleepiness G47.19 ; Snoring R06.83 and Tonsillar hypertrophy J35.1 [facility] [address] [address]49 Oct, Abdominal pain R10.9 ; Acute nasopharyngitis (common cold) J00 and Dysmenorrhea N94.6 [place] [address] 52390- 6100 Aug, Threatened miscarriage O20.0 [place] [address] 58271- 2010 Aug, Lumbago with sciatica, left side M54.42 ; Other chronic pain G89.29 ; Anxiety F41.9 and Obesity (BMI 30-39.9) E66.9 [facility] [id number] [place] [address] 48277- 3492 Aug, Threatened miscarriage O20.0 [place] [address] 23907- 1832 Aug, Threatened miscarriage O20.0 [place] [address] 47533- 8274 Aug, Threatened miscarriage O20.0 [place] [id number] [place] [address] 24711- 1985 Aug, Threatened miscarriage O20.0 [place] [address] 36851- 6184 Aug, Threatened miscarriage O20.0 [place] [address] 20499- 9429 Aug, [place] [address] 32034- 5881 Aug, Encounter for test, result unknown Z32.00 [place] [address] 29746- 4942 Aug, [place] [address] 28334- 3156 Mar, Anxiety F41.9 ; Colitis K52.9 ; Urinary frequency R35.0 ; Abnormal menses N92.6 ; Nausea R11.0 ; Chronic headaches R51 ; Major depression F32.9 and Obesity (BMI 30-39.9) E66.9 [place] [address] 37118- 7153 Jan, Anxiety F41.9 [place] [address] 36564- 3871 Dec, control counseling Z30.9 [place] [address] 36973- 1335 Dec, control counseling Z30.9 [place] [address] 91697- 6920 Oct, Chronic headaches R51 and Colitis K52.9 [place] [address] 09132- 0085 Aug, Encounter for Depo-Provera contraception Z30.42 [place] [address] 73023- 1745 Aug, Anxiety F41.9 ; Chronic headaches R51 and Snoring R06.83 [place] [id number] [place] [address] 32734- 3382 Jul, Chronic headaches R51 and Anxiety F41.9 [place] [id number] [place] [address] 21343- 6868 May, Encounter for well woman exam with routine gynecological exam Z01.419 ; Screen for STD (sexually transmitted disease) Z11.3 ; Encounter for screening for malignant neoplasm of cervix Z12.4 ; High-risk sexual behavior Z72.51 ; Encounter for Depo-Provera contraception Z30.42 and Encounter for screening breast examination Z12.39 [place] [address] 75705- 6584 May, [address] [address]181- 1995 May, Anxiety F41.9 ; Chronic headaches R51 ; Colitis K52.9 ; Tonsillar hypertrophy J35.1 ; Excessive daytime sleepiness G47.19 ; Snoring R06.83 and Obesity (BMI 30-39.9) E66.9 [place] [id number] [place] [address] 90560- 2312 March, Anxiety F41.[address] 69171- 3052 Mar, Colitis K52.9 ; Anxiety F41.9 and Chronic headaches R51 [place] [id number] [place] [address] 10797- 1000 Mar, Anxiety F41.9 ; Panic attack F41.0 and Major depression F32.[address] 13141- 6906 Jan, Migraines G43.909 and Colitis K52.9 IMMUNIZATIONS No Known Immunizations SOCIAL HISTORY Never Assessed REASON FOR VISIT OB Flowsheet History--tcuppettRN PLAN OF CARE VITAL SIGNS MEDICATIONS Unknown [...]
--- OUTSIDE RECORDS SUMMARY | 2018-06-27 12:06 | XMS REPORT ---
Author Author TURKPACO TidwellELE [facility] Address [address] [place] [address] Care Team Providers Care Opening Machine Cleaner Name Role Phone PENELOPE TURK Unavailable PROBLEMS Type Condition ICD9-CM Code [id number] Code Onset Dates Condition Status SNOMED Code Problem Anxiety F41.9 Active 37512927 Problem Tonsillar hypertrophy J35.1 Active 51533775 Problem Obesity (BMI 30-39.9) E66.9 Active 803744164 Problem Colitis K52.9 Active 396611788 Problem Chronic headaches R51 Active 058703743 Problem Dysmenorrhea N94.6 Active 668437586 Problem Other chronic pain G89.29 Active 02035462 Problem Snoring R06.83 Active 52951273 Problem Excessive daytime sleepiness G47.19 Active 999989571989 Problem Lumbago with sciatica, left side M54.42 Active 982243376 Problem Major depression F32.9 Active 105764299 ALLERGIES No Information ENCOUNTERS Encounter Location Date Diagnosis [facility] [address] [place] [address] 70570- 8137 March, [facility] [id number] [place] [address] 57530- 4740 Mar, First trimester Z34.90 [facility] [id number] [place] [address] 55284- 0311 16 Jan, 2018 [facility] [id number] [place] [address] 55875- 8106 Jan, Normal , first Z34.00 [facility] [id number] [place] [address] 27661- 5110 Jan, [facility] [id number] [place] [address] 47174 -4793 Jan, Encounter for test, result positive Z32.01 ; Viral URI J06.9 and Cough R05 [facility] [address] [id number] 02 Jan, 2018 Encounter for dental examination Z01.20 [facility] [address] 86421- 0598 Jan, Encounter for dental examination Z01.20 [facility] [address] 77147- 6711 Jan, Major depression F32.9 ; Anxiety F41.9 ; Excessive daytime sleepiness G47.19 ; Snoring R06.83 and Tonsillar hypertrophy J35.1 [facility] [address] [address] -[address]607 Oct, Abdominal pain R10.9 ; Acute nasopharyngitis (common cold) J00 and Dysmenorrhea N94.6 [facility] [address] 05169- 1739 Aug, Threatened miscarriage O20.0 [place] [address] 16689- 5138 Aug, Lumbago with sciatica, left side M54.42 ; Other chronic pain G89.29 ; Anxiety F41.9 and Obesity (BMI 30-39.9) E66.9 [facility] [address] 82794- 2298 Aug, Threatened miscarriage O20.0 [facility] [address] 31945- 4215 Aug, Threatened miscarriage O20.0 [place] [address] 44540- 7824 Aug, Threatened miscarriage O20.0 [facility] [address] 73868- 9019 Aug, Threatened miscarriage O20.0 [place] [address] 86093- 8594 25 Aug, 2017 Threatened miscarriage O20.0 [place] [address] 33856- 4816 20 Aug, 2017 [place] [address] 17157- 9574 18 Aug, 2017 Encounter for test, result unknown Z32.00 [place] [address] 81405- 0976 12 Aug, 2017 [place] [address] 86842- 6305 Mar, Anxiety F41.9 ; Colitis K52.9 ; Urinary frequency R35.0 ; Abnormal menses N92.6 ; Nausea R11.0 ; Chronic headaches R51 ; Major depression F32.9 and Obesity (BMI 30-39.9) E66.9 [place] [address] 52979- 0197 Jan, Anxiety F41.9 [place] [address] 99663- 4622 Dec, control counseling Z30.9 [place] [address] 18395- 7744 Dec, control counseling Z30.9 [place] [address] 63133- 7986 Oct, Chronic headaches R51 and Colitis K52.9 [place] [address] 14718- 4360 18 Aug, 2016 Encounter for Depo-Provera contraception Z30.42 [place] [address] 84590- 2859 16 Aug, 2016 Anxiety F41.9 ; Chronic headaches R51 and Snoring R06.83 [place] [address] 75606- 5619 Jul, Chronic headaches R51 and Anxiety F41.[address] 61655- 8851 May, Encounter for well woman exam with routine gynecological exam Z01.419 ; Screen for STD (sexually transmitted disease) Z11.3 ; Encounter for screening for malignant neoplasm of cervix Z12.4 ; High-risk sexual behavior Z72.51 ; Encounter for Depo-Provera contraception Z30.42 and Encounter for screening breast examination Z12.39 [place] [address] 51916- 3228 May, [address] 06564- 0559 May, Anxiety F41.9 ; Chronic headaches R51 ; Colitis K52.9 ; Tonsillar hypertrophy J35.1 ; Excessive daytime sleepiness G47.19 ; Snoring R06.83 and Obesity (BMI 30-39.9) E66.9 [place] [id number] [place] [address] 37490- 9857 March, Anxiety F41.[address] 52495- 1792 Mar, Colitis K52.9 ; Anxiety F41.9 and Chronic headaches R51 [place] [id number] [place] [address] 62878- 4478 Mar, Anxiety F41.9 ; Panic attack F41.0 and Major depression F32.9 [place] [id number] [place] [address] 48734- 1192 Jan, Migraines G43.909 and Colitis K52.9 IMMUNIZATIONS [...]
--- OUTSIDE RECORDS SUMMARY | 2018-06-27 12:06 | XMS REPORT ---
Author Author ROSALEE PENELOPE Organization [facility] Address [address] [place] [address] Care Team Providers Care Design Lead Name Role Phone PENELOPE TURK Unavailable PROBLEMS Type Condition ICD9-CM Code KRN25-UR Code Onset Dates Condition Status SNOMED Code Problem Obesity (BMI 30-39.9) E66.9 Active 987024766 Problem Encounter for screening breast examination Z12.39 Active 523182424 Problem Encounter for screening for malignant neoplasm of cervix Z12.4 Active 317955102 Problem Major depression F32.9 Active 057939394 Problem Abnormal menses N92.6 Active 823364036 Problem Screen for STD (sexually transmitted disease) Z11.3 Active 196312699 Problem Encounter for Depo-Provera contraception Z30.42 Active 068077756 Problem Encounter for well woman exam with routine gynecological exam Z01.419 Active 101050383 Problem High-risk sexual behavior Z72.51 Active 416177173 Problem Colitis K52.9 Active 005979363 Problem Excessive daytime sleepiness G47.19 Active 366562251993 Problem Chronic headaches R51 Active 623581901 Problem Snoring R06.83 Active 85532330 Problem Anxiety F41.9 Active 90651843 Problem Tonsillar hypertrophy J35.1 Active 62143670 ALLERGIES Substance Reaction Event Type Date Status Linzess anaphylaxis Drug Allergy Dec, Active Hyoscyamine mouth swelling Drug Allergy Dec, Active Bactrim anaphylaxis Drug Allergy Dec, Active SOCIAL HISTORY No smoking Hx information available PLAN OF CARE Activity Details Follow Up 3 Months Reason:M VITAL SIGNS Height 66.5 in 2016-12-10 Weight 233.0 lbs 2016-12-10 Temperature 99.5 degrees Fahrenheit 2016-12-10 Heart Rate 82 bpm 2016-12-10 Respiratory Rate 20 2016-12-10 BMI 37.04 kg/m2 2016-12-10 Blood pressure systolic 118 mmHg 2016-12-10 Blood pressure diastolic 78 mmHg 2016-12-10 MEDICATIONS Medication Instructions Dosage Frequency Start Date End Date Duration Status Lialda 1.2 GM Orally Once a day 1 tablet 24h Jan, Jan, 90 days Active Depo-Provera 150 MG/ML 1 ml Active Xulane 150-35 MCG/24HR Transdermal once weekly 1 patch to skin-change weekly for three weeks, off for one week Dec, 21 day(s) Active Fioricet 50-300-40 MG Orally every 4 hrs 1 capsule as needed 4h Active RESULTS Name Result Date Reference Range TEST, URINE (IN HOUSE) 2016-12-10 RESULTS Negative Lot # [id number] Control + Exp date PROCEDURES Procedure Date Ordered Related Diagnosis Body Site URINE TEST Dec 10, 2016 Office Visit, Est Pt., Level 3 Dec 10, 2016 IMMUNIZATIONS No Known Immunizations
--- OUTSIDE RECORDS SUMMARY | 2018-06-27 12:07 | XMS REPORT ---
Author Author VIRGINIA LUONG [facility] Address [address] [place] [address] Care Team Providers Care Complaint Investigator Name Role Phone VIRGINIA LUONG Unavailable PROBLEMS Type Condition ICD9-CM Code [id number] Code Onset Dates Condition Status SNOMED Code Problem Anxiety F41.9 Active 16193272 Problem Tonsillar hypertrophy J35.1 Active 59894802 Problem Obesity (BMI 30-39.9) E66.9 Active 141678728 Problem Colitis K52.9 Active 644989151 Problem Chronic headaches R51 Active 378145802 Problem Dysmenorrhea N94.6 Active 101882720 Problem Other chronic pain G89.29 Active 26475208 Problem Snoring R06.83 Active 04824657 Problem Excessive daytime sleepiness G47.19 Active 754403666163 Problem Lumbago with sciatica, left side M54.42 Active 780852924 Problem Major depression F32.9 Active 837935677 ALLERGIES No Information ENCOUNTERS Encounter Location Date Diagnosis [facility] [id number] [place] [address] March, [facility] [address] [place] [id number] [place] [address] 93781- 5999 Mar, First trimester Z34.90 [facility] [id number] [place] [address] 54739- 2116 16 Jan, 2018 [facility] [id number] [place] [address] 30831- 6394 Jan, Normal , first Z34.00 [facility] [id number] [place] [address] 61236- 6835 Jan, [facility] [id number] [place] [address] -[address]30 Jan, Encounter for test, result positive Z32.01 ; Viral URI J06.9 and Cough R05 [facility] [address] [id number] 02 Jan, 2018 Encounter for dental examination Z01.20 [facility] [address] [address] Jan, Encounter for dental examination Z01.20 [facility] [address] 365[address]- [address] Jan, Major depression F32.9 ; Anxiety F41.9 ; Excessive daytime sleepiness G47.19 ; Snoring R06.83 and Tonsillar hypertrophy J35.1 [facility] [address] [address] Oct, Abdominal pain R10.9 ; Acute nasopharyngitis (common cold) J00 and Dysmenorrhea N94.6 [facility] [address] [address]- [address] Aug, Threatened miscarriage O20.0 [place] [address] [address] Aug, Lumbago with sciatica, left side M54.42 ; Other chronic pain G89.29 ; Anxiety F41.9 and Obesity (BMI 30-39.9) E66.9 [facility] [address] 324[address]- 68[address] Aug, Threatened miscarriage O20.0 [facility] [address] 706[address]- 3[address] Aug, Threatened miscarriage O20.0 [place] [address] 00[address]- 1827 Aug, Threatened miscarriage O20.0 [facility] [address] 19[address]- 9427 Aug, Threatened miscarriage O20.0 [place] [address] 64[address]- 2523 25 Aug, 2017 Threatened miscarriage O20.0 [place] [address] 62312- 5427 20 Aug, 2017 [place] [address] 90817- 6504 18 Aug, 2017 Encounter for test, result unknown Z32.00 [place] [address] 76438- 3948 12 Aug, 2017 [place] [address] 29604- 3607 Mar, Anxiety F41.9 ; Colitis K52.9 ; Urinary frequency R35.0 ; Abnormal menses N92.6 ; Nausea R11.0 ; Chronic headaches R51 ; Major depression F32.9 and Obesity (BMI 30-39.9) E66.9 [place] [address] 37062- 4185 Jan, Anxiety F41.9 [place] [address] 60821- 9503 Dec, control counseling Z30.9 [place] [address] 02399- 3734 Dec, control counseling Z30.9 [place] [address] 34961- 1309 Oct, Chronic headaches R51 and Colitis K52.9 [place] [address] 73415- 3571 18 Aug, 2016 Encounter for Depo-Provera contraception Z30.42 [place] [address] 22323- 8608 16 Aug, 2016 Anxiety F41.9 ; Chronic headaches R51 and Snoring R06.83 [place] [address] 012[address]- 6849 Jul, Chronic headaches R51 and Anxiety F41.9 [place] [address] 59130- 3120 May, Encounter for well woman exam with routine gynecological exam Z01.419 ; Screen for STD (sexually transmitted disease) Z11.3 ; Encounter for screening for malignant neoplasm of cervix Z12.4 ; High-risk sexual behavior Z72.51 ; Encounter for Depo-Provera contraception Z30.42 and Encounter for screening breast examination Z12.39 [place] [address] 58188- 7949 May, [place] [address] 482[address]- 3885 May, Anxiety F41.9 ; Chronic headaches R51 ; Colitis K52.9 ; Tonsillar hypertrophy J35.1 ; Excessive daytime sleepiness G47.19 ; Snoring R06.83 and Obesity (BMI 30-39.9) E66.9 [place] [address] [id number] [place] [address] 45363- 7787 March, Anxiety F41.9 [place] [address] 84633- 0898 Mar, Colitis K52.9 ; Anxiety F41.9 and Chronic headaches R51 [place] [address] 01575- 3111 Mar, Anxiety F41.9 ; Panic attack F41.0 and Major depression F32.9 [place] [address] [place] [id number] [place] [address] 88751- 0834 Jan, Migraines G43.909 and Colitis K52.9 IMMUNIZATIONS No Known Immunizations SOCIAL HISTORY Never Assessed REASON FOR VISIT Lab (walk-in) PLAN OF CARE VITAL SIGNS MEDICATIONS Unknown Medications RESULTS Name Result Date Reference Range HCG, QUANTITATIVE 2017-09-04 hCG,Beta Subunit,Qnt,Serum 41 PROCEDURES Procedure Date Ordered Result Body Site CHORIONIC GONADOTROPIN TEST Sep 04, 2017 VENIPUNCT, ROUTINE* Sep 04, 2017 INSTRUCTIONS MEDICATIONS ADMINISTERED No Known Medications MEDICAL (GENERAL) HISTORY Type Description Date Medical History microscopic colitis 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
--- OUTSIDE RECORDS SUMMARY | 2018-06-27 12:07 | XMS REPORT ---
Author Author ZAINA MARTINS [facility] Address [address] [place] [address] Care Team Providers Care Bulk Clerk Name Role Phone ELIEZERZAINA Unavailable PROBLEMS Type Condition ICD9-CM Code [id number] Code Onset Dates Condition Status SNOMED Code Problem Anxiety F41.9 Active 74414736 Problem Tonsillar hypertrophy J35.1 Active 42594506 Problem Obesity (BMI 30-39.9) E66.9 Active 309454685 Problem Colitis K52.9 Active 683006446 Problem Chronic headaches R51 Active 054252564 Problem Dysmenorrhea N94.6 Active 982765187 Problem Other chronic pain G89.29 Active 26171743 Problem Snoring R06.83 Active 19083940 Problem Excessive daytime sleepiness G47.19 Active 279491461337 Problem Lumbago with sciatica, left side M54.42 Active 003199132 Problem Major depression F32.9 Active 980583460 ALLERGIES No Information ENCOUNTERS Encounter Location Date Diagnosis [facility] [address] [place] [address] 63599- 8161 March, [facility] [address] [place] [id number] [place] [address] 51556- 4026 Mar, First trimester Z34.90 [facility] [address] [place] [id number] [place] [address] 60805- 5837 Jan, [facility] [id number] [place] [address] 61811- 4612 Jan, Normal , first Z34.00 [facility] [address] [place] [id number] [place] [address] 91231- 5575 Jan, [facility] [address] [place] [id number] [place] [address] 43565 -5355 Jan, Encounter for test, result positive Z32.01 ; Viral URI J06.9 and Cough R05 [facility] [address] [id number] 02 Jan, 2018 Encounter for dental examination Z01.20 [facility] [address] 26094- 2604 Jan, Encounter for dental examination Z01.20 [facility] [address] 74805- 1814 01 Jan, 2018 Major depression F32.9 ; Anxiety F41.9 ; Excessive daytime sleepiness G47.19 ; Snoring R06.83 and Tonsillar hypertrophy J35.1 [facility] [address] [address] Oct, Abdominal pain R10.9 ; Acute nasopharyngitis (common cold) J00 and Dysmenorrhea N94.6 [facility] [address] 84658- 0796 Aug, Threatened miscarriage O20.0 [place] [address] 85181- 1331 Aug, Lumbago with sciatica, left side M54.42 ; Other chronic pain G89.29 ; Anxiety F41.9 and Obesity (BMI 30-39.9) E66.9 [facility] [address] 15610- 7858 Aug, Threatened miscarriage O20.0 [facility] [address] 87307- 8473 Aug, Threatened miscarriage O20.0 [place] [address] 60401- 3925 Aug, Threatened miscarriage O20.0 [facility] [address] 51019- 4168 Aug, Threatened miscarriage O20.0 [place] [address] 37744- 6139 25 Aug, 2017 Threatened miscarriage O20.0 [place] [address] 44423- 7208 20 Aug, 2017 [place] [address] 21214- 1334 18 Aug, 2017 Encounter for test, result unknown Z32.00 [place] [address] 81846- 5446 12 Aug, 2017 [place] [address] 07547- 1468 Mar, Anxiety F41.9 ; Colitis K52.9 ; Urinary frequency R35.0 ; Abnormal menses N92.6 ; Nausea R11.0 ; Chronic headaches R51 ; Major depression F32.9 and Obesity (BMI 30-39.9) E66.9 [place] [address] 74076- 9558 Jan, Anxiety F41.9 [place] [address] 24219- 7445 Dec, control counseling Z30.9 [place] [address] 26571- 1436 Dec, control counseling Z30.9 [place] [address] 19260- 7692 Oct, Chronic headaches R51 and Colitis K52.9 [place] [address] 28531- 9087 18 Aug, 2016 Encounter for Depo-Provera contraception Z30.42 [place] [address] 05339- 8434 16 Aug, 2016 Anxiety F41.9 ; Chronic headaches R51 and Snoring R06.83 [place] [address] 68188- 3628 Jul, Chronic headaches R51 and Anxiety F41.9 [place] [id number] [place] [address] 73216- 8443 May, Encounter for well woman exam with routine gynecological exam Z01.419 ; Screen for STD (sexually transmitted disease) Z11.3 ; Encounter for screening for malignant neoplasm of cervix Z12.4 ; High-risk sexual behavior Z72.51 ; Encounter for Depo-Provera contraception Z30.42 and Encounter for screening breast examination Z12.39 [place] [address] 73529- 5976 May, [address] [address]- [address] May, Anxiety F41.9 ; Chronic headaches R51 ; Colitis K52.9 ; Tonsillar hypertrophy J35.1 ; Excessive daytime sleepiness G47.19 ; Snoring R06.83 and Obesity (BMI 30-39.9) E66.9 [place] [address] [place] [id number] [place] [address] 51325[address] 0[address] March, Anxiety F41.[address] [address]- [address]561 Mar, Colitis K52.9 ; Anxiety F41.9 and Chronic headaches R51 [address] 24452- 0877 Mar, Anxiety F41.9 ; Panic attack F41.0 and Major depression F32.9 [place] [address] [place] [id number] [place] [address] 97590- 3544 Jan, Migraines G43.909 and Colitis K52.9 IMMUNIZATIONS No Known Immunizations SOCIAL HISTORY Never Assessed REASON FOR VISIT test (walk-in) PLAN OF CARE VITAL SIGNS MEDICATIONS Unknown Medications RESULTS Name Result Date Reference Range TEST, URINE (IN HOUSE) 2017-08-18 RESULTS Positive Lot # [id number] Control + Exp date 01/2019 PROCEDURES Procedure Date Ordered Result Body Site URINE TEST Aug 18, 2017 INSTRUCTIONS MEDICATIONS ADMINISTERED No Known Medications MEDICAL (GENERAL) HISTORY Type Description Date Medical History microscopic colitis 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
--- NOTE | 2018-06-27 12:41 | ED Fall/Injury ---
General Chief Complaint: Trauma-Non Activation Stated Complaint: 29 WKS/FALL/R SIDE AND ANKLE PAIN Nursing Triage Note: PT STATES SHE FELL OFF THE BACK OF A TRAILER WITH THE HEIGHT OF 18" LANDING ON R SIDE. Source: patient, old records Exam Limitations: no limitations History of Present Illness Date Seen by Provider: Jun 27, 2018 Time Seen by Provider: 12:17 Initial Comments This 23-year-old young lady at approximately 29 weeks gestational age presents to the emergency room for evaluation of injuries after falling off a trailer last night. The trailer was about 18 inches off the ground. Patient has pain in the right ankle and some mild cramping in the right abdomen. She fell onto her right side and states there may have been some mild blunt trauma to the abdomen. She has been feeling her baby move. She denies any vaginal bleeding or loss of fluid. She has been ambulatory but states there is some pain with weightbearing on the ankle. She has mild edema on the right lateral ankle. There was no head injury or loss of consciousness. Location Injury Occurred: HOME Allergies and Home Medications Allergies Coded Allergies: Sulfa (Sulfonamide Antibiotics) (Verified Allergy, Mild, 06/03/17) hyoscyamine (Verified Allergy, Mild, 06/03/17) linaclotide (Verified Allergy, Mild, 06/03/17) milk (Verified Allergy, Mild, 06/03/17) Home Medications Tramadol HCl 50 Mg Tablet, 50 MG PO QID PRN for PAIN-MILD TO MODERATE Prescribed by: NATHAN FINLEY on 06/03/17 1156 Patient Home Medication List Home Medication List Reviewed: Yes Review of Systems Constitutional: no symptoms reported Eyes: No Symptoms Reported Ears, Nose, Mouth, Throat: no symptoms reported Respiratory: no symptoms reported Cardiovascular: no symptoms reported Gastrointestinal: see HPI Genitourinary: see HPI : Yes Expected Date of Delivery: Aug 31, 2018 Musculoskeletal: see HPI Skin: no symptoms reported Psychiatric/Neurological: No Symptoms Reported Past Lniquby-Bmcobe-Xxgkfn Hx Patient Social History Alcohol Use: Denies Use Recreational Drug Use: No Recent Foreign Travel: No Contact w/Someone Who Travel: No Recent Infectious Disease Expo: No Recent Hopitalizations: No Physical Abuse: No Sexual Abuse: No Seasonal Allergies Seasonal Allergies: No Past Medical History Surgeries: Yes (BACK SURG AND COLONOSCOPY X2) Abdominal, Orthopedic Respiratory: No Cardiac: No Neurological: Yes Headaches /Migraines Expected Date of Delivery: Aug 31, 2018 Hx : 2 Hx Para: 2 Hx Total # of Abortions (Sp): 1 Gastrointestinal: Yes (Chronic abdominal pain) Colitis (microscopic colitis) Musculoskeletal: Yes Chronic Back Pain Endocrine: No HEENT: No Cancer: No Psychosocial: Yes Anxiety Nursing Suicide Risk Score: 0 Integumentary: No Physical Exam Vital Signs Vital Signs - First Documented 06/27/18 12:08 Temp 96.9 Pulse 89 Resp 14 B/P (MAP) 138/84 (102) O2 Delivery Room Air Capillary Refill : Less Than 3 Seconds Height, Weight, BMI Height: 5'6.50" Weight: 260lbs. oz. 117.970181ry; BMI Method:Stated General Appearance: WD/WN, no apparent distress HEENT: normal ENT inspection Neck: normal inspection Gastrointestinal: soft; No distended, No guarding; tenderness (minimal tenderness in the right lower abdomen. No evidence of bruising or contusion) Pelvic: other ( heart tones by Doppler 120s to 140s) Extremities: other (right lower extremity findings include mild tenderness to the anterior ankle, lateral malleolus, and right lateral foot. There is swelling over the lateral malleolus) Neurologic/Psychiatric: barrel cap setter II-XII nml as tested, no motor/sensory deficits, alert, normal mood/affect, oriented x 3 Skin: normal color, warm/dry Coleman Coma Score Best Eye Response: (4) Open Spontaneously Best Verbal Response: (5) Oriented Best Motor Response: (6) Obeys Commands [place] Total: 15 Progress/Results/Core Measures Results/Orders Vital Signs/I&O 06/27/18 12:08 Temp 96.9 Pulse 89 Resp 14 B/P (MAP) 138/84 (102) O2 Delivery Room Air Blood Pressure Mean: 102 Progress Progress Note : Progress Note My suspicion for bony ankle injury is low given the exam findings and degree of pain. Patient was offered x-ray with abdominal shielding to ensure no bony injury. Risks and benefits were discussed including radiation exposure to the baby. Patient declined x-ray. She was also offered crutches and declined. I discussed the case with Dr. Appiah regarding monitoring of heart tones after trauma. Dr. Appiah recommended that the patient be evaluated on labor and delivery with heart tone monitoring. Patient was discharged from the emergency room and sent to women's services. Departure Impression Primary Impression: Fall from stationary vehicle Qualified Codes: W17.89XA - Other fall from one level to another, initial encounter Additional Impressions: Right ankle sprain Qualified Codes: S93.401A - Sprain of unspecified ligament of right ankle, initial encounter Abdominal cramping Qualified Codes: Z3A.29 - 29 weeks gestation of Disposition: 01 HOME, SELF-CARE Condition: Stable Departure-Patient Inst. Decision time for Depature: 12:39 Referrals: BENOIT MACHADO MD (PCP) Primary Care Physician PENELOPE TURK APRN (Family) Primary Care Physician Patient Instructions: Ankle Sprain Add. Discharge Instructions: For your ankle sprain you may take Tylenol (acetaminophen) up to 1000 mg every 6 hours as needed. Elevating, icing at 20 minute intervals, and a compressive wrap such as Ciaran bandage or a Velcro ankle brace should be helpful in reducing pain and swelling. An ankle brace can be worn for the next few weeks to provide stability and prevent reinjury. Return to care of her ankle was not healing as anticipated. Please present to Women's Services for monitoring. Dr. Appiah will supervise your care on Women's Services on behalf of Dr Machado. All discharge instructions reviewed with patient and/or family. Voiced understanding. Copy Copies To 1: BENOIT MACHADO MD, JOSHUA T MD Jun 27, 2018 12:41
[2018-06-27 12:45] VITALS: BP 138/84
== END 2018-06-27 12:45 | disposition home or self-care (01) ==
LOC: EDUNIT# 11:59 → ER 11:59
DX: O9A.213 Injury, poisoning and certain other consequences of external causes complicating pregnancy, third trimester (principal); S93.401A Sprain of unspecified ligament of right ankle, initial encounter; O99.89 Other specified diseases and conditions complicating pregnancy, childbirth and the puerperium; R10.31 Right lower quadrant pain; R40.2142 Coma scale, eyes open, spontaneous, at arrival to emergency department; R40.2252 Coma scale, best verbal response, oriented, at arrival to emergency department; R40.2362 Coma scale, best motor response, obeys commands, at arrival to emergency department; O99.353 Diseases of the nervous system complicating pregnancy, third trimester; G43.909 Migraine, unspecified, not intractable, without status migrainosus; O99.343 Other mental disorders complicating pregnancy, third trimester; F41.9 Anxiety disorder, unspecified; Z87.19 Personal history of other diseases of the digestive system; Z88.2 Allergy status to sulfonamides; Z88.8 Allergy status to other drugs, medicaments and biological substances; Z3A.29 29 weeks gestation of pregnancy; W17.89XA Other fall from one level to another, initial encounter
CPT/HCPCS: 99282

== ENCOUNTER 2018-06-27 12:44 | Outpatient (CLI) | payer OTHER ==
[~2018-06-27] VITALS: Ht 167.6 cm; Wt 117.6 kg
[2018-06-27 13:00] VITALS: BP 127/63
--- NOTE | 2018-06-27 13:12 | History & Physical-OB ---
OB - Chief Complaint & HPI Date/Time Date of Admission: Date of Admission: 06/28/18 Time Seen by Provider: 12:50 Chief Complaint/History OB-Reason for Admission/Chief: Abdominal Trauma due to fall Hx : 2 Hx Para: 0 Expected Date of Delivery: Sep 12, 2018 Gestational Age in Weeks: 29 Gestational Age in Days: 0 Other reason for admission: Pt fell off trailer last night ~1900, falling ~15 inches to the ground and landing on her right side, including her abdomen Admission Nurse Assessment Rev: Yes Allergies and Home Medications Allergies Coded Allergies: Sulfa (Sulfonamide Antibiotics) (Verified Allergy, Mild, 06/03/17) hyoscyamine (Verified Allergy, Mild, 06/03/17) linaclotide (Verified Allergy, Mild, 06/03/17) milk (Verified Allergy, Mild, 06/03/17) Home Medications No Active Prescriptions or Reported Meds Patient Home Medication List Home Medication List Reviewed: Yes OB - History Hx of Present Care: Yes Ultrasounds: Normal mid trimester US Obstetrical Complications: None Medical Complications: None Information Induced Hypertension: No Maternal Gestational Diabetes: No Hemorrhage: No Obstetrical History Hx : 2 Hx Para: 0 Hx # Term Pregnancies: 0 Hx # Pregnancies: 0 Number of Living Children: 0 Hx Termination: No Hx Total # of Abortions (Spona: 1 Hx Multiple Gestation: No Hx Ectopic : No Hx Stillbirth: No Hx Complication: No Hx Induced Hypertens: No Hx Maternal Gestational Diabet: No Hx Hemorrhage: No Patient Past Medical History SAB at 6 weeks Microscopic Colitis Bulging Discs Past Surgical History: Laminectomy Social History/Family History Recent Infectious Disease Expo: No Sexually Transmitted Disease: No Alcohol Use: Denies Use Recreational Drug Use: No Immunizations Tetanus Booster (TDap): Unknown Rubella: unknown RPR/VDRL: Unknown GBS Status: Unknown HBsAG: Unknown OB - Admission Exam Physical Exam HEENT: NCAT Heart: Rhythm Normal Lungs: Clear Abdomen: Gravid (soft, nontender, no rebound, no gaurding, no bruising, palpable movement) Extremities: Normal Membranes: Intact Heart Rate: 140's Accelerations: Accelerations Present Decelerations: No Decelerations Reaming Machine Tender Variability: Average (6-25) Frequency of Contractions: Occasional and Irregular Intensity: Mild OB - Assessment/Plan/Diagnosis Assessment Assessment: other (Abdominal Trauma in Third Trimester) Admission Dx Abdominal Trauma in Third Trimester 29 weeks Gestation Admission Status: Other (Clinic) Plan Plan: Other Other Plan - monitoring -- reassuring and reactive, category I tracing -will obtain biophysical profile and limited US for evaluation of placenta -Type and Screen, Rhogam if Rh Negative -given that fall was 18 hours ago, no need to keep for extended monitoring; if testing reassuring, will discharge to home, rhogam if indicated prior to discharge -BPP 07/08 -no placental abnormalities noted on US -B positive -patient discharged to home, follow up with Dr. Machado next week, continue daily kick counts, return precautions given Copy Copies To 1: BENOIT MACHADO MD, MARGARET E DO Jun 27, 2018 13:12
[2018-06-27 14:30] VITALS: BP 126/60
--- NOTE | 2018-06-27 15:27 | Diagnostic Imaging Report ---
EXAM: US BIOPHYSICAL PROFILE [id number] INDICATION: ABDOMINAL TRAUMA COMPARISON: Obstetrical ultrasound 04/23/2018. FINDINGS: Single live intrauterine in the cephalic presentation. heart rate 155 bpm. Posterior placenta, grade 2. Biophysical profile score of 8 out of 8. IMPRESSION: Biophysical profile score of 8 over 8. Dictated by: Dictated on workstation # [id number]
== END 2018-06-27 15:23 | disposition home or self-care (01) ==
LOC: WSo 12:44
PROVIDERS: ATTEND Family Medicine
DX: S39.91XA Unspecified injury of abdomen, initial encounter (principal); W17.89XA Other fall from one level to another, initial encounter; Z3A.29 29 weeks gestation of pregnancy
CPT/HCPCS: 76819; 86850; 86900; 86901; 99213

== ENCOUNTER 2018-09-14 18:34 | Inpatient (IN) | payer OTHER ==
[~2018-09-14] VITALS: Ht 167.6 cm; Wt 127.6 kg
[2018-09-14] MEDS ORDERED: LACTATED RINGERS 1,000 ML IV ONE (19:09)
[2018-09-14] MEDS ORDERED: D5 LR IV SOLUTION 1,000 ML IV SCH (19:23)
[2018-09-14] MEDS: LACTATED RINGERS 1,000 ML IV SCH (19:25)
[2018-09-14] MEDS ORDERED: ZOLPIDEM 5 MG (AMBIEN) TAB PO PRN (19:30)
[2018-09-14] MEDS ORDERED: MINERAL OIL CONCENTRATE 99.9% 15 ML UDC TOP PRN (19:30)
[2018-09-14] MEDS ORDERED: DINOPROSTONE 10 MG (CERVIDIL) INSERT PV NR (19:30)
[2018-09-14 20:00] VITALS: BP 138/91
[2018-09-14 20:22] LABS: BASOPHILS % (AUTO) 0 % (0-10); EOSINOPHILS # (AUTO) 0.2 10^3/uL (0.0-0.3); EOSINOPHILS % (AUTO) 1 % (0-10); HEMATOCRIT 35 % (35-52); HEMOGLOBIN 12.7 G/DL (11.5-16.0); LYMPHOCYTES # (AUTO) 2.1 X 10^3 (1.0-4.0); LYMPHOCYTES % (AUTO) 17 % (12-44); MEAN CORPUSCULAR HEMOGLOBIN 32 PG (25-34); MEAN CORPUSCULAR HGB CONC 37 G/DL (32-36); MEAN CORPUSCULAR VOLUME 88 FL (80-99); MEAN PLATELET VOLUME 8.4 FL (7.4-10.4); MONOCYTES # (AUTO) 0.6 X 10^3 (0.0-1.0); MONOCYTES % (AUTO) 5 % (0-12); NEUTROPHILS # (AUTO) 9.6 X 10^3 (1.8-7.8); NEUTROPHILS % (AUTO) 77 % (42-75); PLATELET COUNT 179 10^3/uL (130-400); RED BLOOD COUNT 3.93 10^6/uL (4.35-5.85); RED CELL DISTRIBUTION WIDTH 12.8 % (10.0-14.5); WHITE BLOOD COUNT 12.5 10^3/uL (4.3-11.0)
[2018-09-14] MEDS ORDERED: CATHETER FLUSH 10 ML SYR IV SCH (22:00)
[2018-09-15] VITALS (41 sets, daily range): BP systolic 112–210; BP diastolic 52–112
[2018-09-15] MEDS: BUTORPHANOL INJ 2 MG/ML (STADOL) VIAL IV PRN ×2 (01:04→03:41)
--- NOTE | 2018-09-15 07:22 | History & Physical-OB ---
OB - Chief Complaint & HPI Date/Time Date of Admission: Date of Admission: Date seen by a Provider: Sep 15, 2018 Time Seen by a Provider: 07:25 Chief Complaint/History OB-Reason for Admission/Chief: Induction of Labor Hx : 1 Hx Para: 0 Expected Date of Delivery: Sep 17, 2018 Gestational Age in Weeks: 39 Gestational Age in Days: 4 Admission Nurse Assessment Rev: Yes History of Labs GBS negative Allergies and Home Medications Allergies Coded Allergies: Sulfa (Sulfonamide Antibiotics) (Verified Allergy, Mild, 06/03/17) hyoscyamine (Verified Allergy, Mild, 06/03/17) linaclotide (Verified Allergy, Mild, 06/03/17) milk (Verified Allergy, Mild, 06/03/17) Home Medications No Active Prescriptions or Reported Meds Patient Home Medication List Home Medication List Reviewed: Yes OB - History Hx of Present Care: Yes Ultrasounds: Normal mid trimester US Obstetrical Complications: None Medical Complications: None Obstetrical History Hx Termination: No Hx Multiple Gestation: No Hx Stillbirth: No Hx Complication: No Hx Induced Hypertens: No Hx Maternal Gestational Diabet: No Delivery History Adverse Rxn to Tranfusion: No Patient Past Medical History SAB at 6 weeks Microscopic Colitis Bulging Discs Past Surgical History: Laminectomy Social History/Family History HIV/AIDS: No Recent Infectious Disease Expo: No Sexually Transmitted Disease: No Alcohol Use: Denies Use Recreational Drug Use: No Immunizations Hepatitis A: Yes Hepatitis B: Yes Tetanus Booster (TDap): Unknown Date of Influenza Vaccine: Sep 09, 2018 OB - Admission Exam Physical Exam Vitals: Vital Signs 09/14/18 09/15/18 20:00 07:00 Temp 98.1 Pulse 96 Resp 18 B/P (MAP) 141/86 (104) Pulse Ox 98 O2 Delivery Room Air HEENT: Moist Membranes Heart: Rhythm Normal Abdomen: Gravid Extremities: Normal Cervical Dilatation: 1cm Effacement: 50% Station: -3 Membranes: Intact Heart Rate: 140's Accelerations: Accelerations Present Residential Variability: Average (6-25) Contractions on Admission: >10 Minutes Apart Intensity: Mild Duran Scoring Tool (Modified) Dilation (cm): 1-2cm (1) Effacement (%): 31-51% (1) Descent/Station: -3 (0) Cervix Consistency: Medium(1) Cervix Position: Middle/Mid-Position (1) Duran Score: 4 Labs Laboratory Tests Test 09/14/18 20:15 Range/Units White Blood Count 12.5 H 4.3-11.0 10^3/uL Red Blood Count 3.93 L 4.35-5.85 10^6/uL Hemoglobin 12.7 11.5-16.0 G/DL Hematocrit 35 35-52 % Mean Corpuscular Volume 88 80-99 FL Mean Corpuscular Hemoglobin 32 25-34 PG Mean Corpuscular Hemoglobin Concent 37 H 32-36 G/DL Red Cell Distribution Width 12.8 10.0-14.5 % Platelet Count 179 130-400 10^3/uL Mean Platelet Volume 8.4 7.4-10.4 FL Neutrophils (%) (Auto) 77 H 42-75 % Lymphocytes (%) (Auto) 17 12-44 % Monocytes (%) (Auto) 5 0-12 % Eosinophils (%) (Auto) 1 0-10 % Basophils (%) (Auto) 0 0-10 % Neutrophils # (Auto) 9.6 H 1.8-7.8 X 10^3 Lymphocytes # (Auto) 2.1 1.0-4.0 X 10^3 Monocytes # (Auto) 0.6 0.0-1.0 X 10^3 Eosinophils # (Auto) 0.2 0.0-0.3 10^3/uL Basophils # (Auto) 0.0 0.0-0.1 10^3/uL OB - Assessment/Plan/Diagnosis Assessment Assessment: induction of labor (at 39w4d) Admission Dx 1. IUP at term 39w4d Admission Status: Inpatient Order (span 2 midnights) Reason for Inpatient Admission: L&D Plan Plan: Induction Induction Method: other (cervidil) Other Plan -pitocin as needed -epidural BENOIT MACHADO MD Sep 15, 2018 07:22
[2018-09-15] MEDS ORDERED: OXYTOCIN/NORMAL SALINE 500 ML IV SCH ×2 (07:39→14:28)
[2018-09-15] MEDS ORDERED: SUFENTA 0.6MCG/ML BUPIVA 0.125 100 ML ONE (08:08)
[2018-09-15] MEDS ORDERED: fentaNYL INJECTION 100 MCG/2 ML AMP ONE (08:44)
[2018-09-15] MEDS: LACTATED RINGERS 1,000 ML IV SCH (11:13)
[2018-09-15] MEDS ORDERED: MEPIVACAINE (CARBOCAINE) 2% 50 ML VIAL ONE (12:16)
[2018-09-15] MEDS ORDERED: LACTATED RINGERS 1,000 ML IV ONE (14:08)
[2018-09-15] MEDS ORDERED: diphenhydrAMINE 50 MG/ML INJ (BENADRYL) IV PRN (14:15)
[2018-09-15] MEDS ORDERED: ONDANSETRON 4 MG/2 ML (SDV) Z0FRAN IV PRN (14:15)
[2018-09-15] MEDS ORDERED: NALOXONE 0.4 MG/ML 1 ML (NARCAN) VIAL IV PRN ×2 (14:15)
[2018-09-15] MEDS ORDERED: EPIDURAL (SUFENTA 0.6MCG/ML BUPIVA 0.125%) 100 ML BAG EPI PRN (14:15)
[2018-09-15] MEDS ORDERED: METOCLOPRAMIDE INJ 10 MG/2 ML (REGLAN) IV PRN (14:15)
[2018-09-15] MEDS ORDERED: TETANUS,DIPTH,PERTUSS P/F (BOOSTRIX) 0.5 ML VIAL IM ONE (14:30)
[2018-09-15] MEDS ORDERED: HYDROcodone/APAP 5 MG/325 MG (LORTAB) TAB PO PRN (14:30)
[2018-09-15] MEDS ORDERED: MEASLES,MUMPS,RUBELLA 1 EA INJ SQ ONE (14:30)
[2018-09-15] MEDS ORDERED: WITCH HAZEL(TUCKS) 40 EA JAR TOP PRN (14:30)
[2018-09-15] MEDS ORDERED: BENZOCAINE/MENTHOL (DERMOPLAST) 56 ML CAN TP PRN (14:30)
--- NOTE | 2018-09-15 14:36 | OB Labor & Delivery Record ---
L&D History Date of Service Date of Service: Sep 15, 2018 History Expected Date of Delivery: Sep 17, 2018 Gestational Age in Weeks: 39 Hx : 1 Hx Para: 0 Complications Events: Routine care Operative Indications (Cesarea: N/A-Vaginal Delivery Intrapartal Events: None L&D Stage1 Stage One Onset of Labor - Date: Sep 15, 2018 Onset of Labor - Time: 07:20 Monitors and Tracing Monitor Mode: Internal Heart Rate: 120 Monitor Accelerations: Uniform Monitor Decelerations: None Station: -1 Mcc Variability: Average (6-10) Short Term Variability: Present Presentation: Vertex Vital Signs VS - Last 72 Hours, by Label 09/14/18 09/15/18 09/15/18 09/15/18 20:00 07:00 07:45 08:30 Temp 98.4 98.1 Pulse 88 96 94 Resp 18 18 18 18 B/P (MAP) 138/91 (107) 141/86 (104) 142/92 (109) 129/88 (102) Pulse Ox 98 O2 Delivery Room Air 09/15/18 09/15/18 09/15/18 09/15/18 08:40 08:48 08:53 09:00 Temp 97.3 Pulse 92 99 99 108 Resp 18 18 18 18 B/P (MAP) 139/83 (101) 159/87 (111) 143/85 (104) 138/67 (90) Pulse Ox 99 99 98 09/15/18 09/15/18 09/15/18 09/15/18 09:03 09:06 09:09 09:12 Pulse 109 103 107 95 Resp 18 18 18 18 B/P (MAP) 131/68 (89) 115/67 (83) 124/67 (86) 130/69 (89) Pulse Ox 96 98 98 98 09/15/18 09/15/18 09/15/18 09/15/18 09:15 09:18 09:20 09:23 Pulse 104 94 100 88 Resp 18 18 18 18 B/P (MAP) 120/75 (90) 123/80 (94) 121/73 (89) 122/70 (87) Pulse Ox 98 98 98 99 09/15/18 09/15/18 09/15/18 09/15/18 09:30 09:35 09:40 09:45 Pulse 95 84 82 85 Resp 18 18 18 18 B/P (MAP) 125/71 (89) 121/81 (94) 125/60 (81) 134/74 (94) Pulse Ox 98 98 97 99 09/15/18 09/15/18 09/15/18 09/15/18 09:50 09:55 10:15 10:30 Temp 97.0 Pulse 75 95 76 76 Resp 18 18 18 18 B/P (MAP) 134/75 (94) 138/76 (96) 136/75 (95) 135/66 (89) Pulse Ox 100 99 99 09/15/18 09/15/18 09/15/18 09/15/18 10:45 11:00 11:15 11:30 Pulse 91 77 83 93 Resp 18 18 18 18 B/P (MAP) 134/81 (98) 133/85 (101) 133/76 (95) 127/71 (89) 09/15/18 09/15/18 09/15/18 09/15/18 11:45 12:00 12:15 12:30 Pulse 94 94 100 116 Resp 18 18 18 18 B/P (MAP) 158/91 (113) 144/90 (108) 143/91 (108) 139/79 (99) 09/15/18 09/15/18 12:45 13:00 Pulse 102 162 Resp 18 18 B/P (MAP) 137/85 (102) 210/112 (144) Signs of Distress by FHT Signs of Distress no Rupture of Membranes Spontaneous Ruture of Membrane: No Amniotic Membrane Rupture Time: 0735 Amniotic Membrane Fluid Desc.: Clear Induction/Anesthesia Epidural Cath Placement - Time: 0842 L&D Stage2 Stage Two Stage II Date: Sep 15, 2018 Stage II Time: 13:11 Monitors and Tracing Monitor Mode: Internal Heart Rate: 120 Monitor Accelerations: Uniform Monitor Decelerations: None Mcc Variability: Average (6-10) Short Term Variability: Present Position: Left Occiput Transverse Presentation: Vertex Signs of Distress by FHT Signs of Distress no Cord Descript/Complications Cord Vessel Description: 3 Vessels Delivery Type Infant Delivery Method: Spontaneous Vaginal Episiotomy/Perineal Laceration Laceraction(s)/Extensions: Yes Episiotomy Description: Midline, Vaginal Extension/lac Sutures Used: Vicryl Condition of Infant Delivery 1 minute Comment: 8 5 minute Comment: 9 Condition of Condition of : Living Exam: No Observed Abnormalities Resuscitation Resuscitation: N/A - Spontaneous Resp L&D Stage3 Stage Three Stage III Date: Sep 15, 2018 Stage III Time: 13:16 Pictocin Pitocin Administration mu/min: 10 Pitocin ml/hr: 10 Pitocin Administration Comment: 1100 Pitocin increased Placenta Delivery Placenta Delivery: Spontaneous Delivery Summary Summary Estimated blood loss (mL): 350 Condition of Delivery Examined: Cervix Examined Post Hemorrhage: No Intervention Required none BENOIT MACHADO MD Sep 15, 2018 14:36
[2018-09-15] MEDS: IBUPROFEN 600 MG (MOTRIN) TAB PO SCH (17:10)
[2018-09-15] MEDS ORDERED: CATHETER FLUSH 10 ML SYR IV SCH (22:00)
[2018-09-16] VITALS: BP 123/71
[2018-09-16 04:00] VITALS: BP 106/60
[2018-09-16 04:49] LABS: BASOPHILS % (AUTO) 0 % (0-10); EOSINOPHILS # (AUTO) 0.1 10^3/uL (0.0-0.3); EOSINOPHILS % (AUTO) 1 % (0-10); HEMATOCRIT 29 % (35-52); HEMOGLOBIN 10.1 G/DL (11.5-16.0); LYMPHOCYTES # (AUTO) 2.8 X 10^3 (1.0-4.0); LYMPHOCYTES % (AUTO) 23 % (12-44); MEAN CORPUSCULAR HEMOGLOBIN 33 PG (25-34); MEAN CORPUSCULAR HGB CONC 35 G/DL (32-36); MEAN CORPUSCULAR VOLUME 92 FL (80-99); MEAN PLATELET VOLUME 8.7 FL (7.4-10.4); MONOCYTES # (AUTO) 0.9 X 10^3 (0.0-1.0); MONOCYTES % (AUTO) 7 % (0-12); NEUTROPHILS # (AUTO) 8.6 X 10^3 (1.8-7.8); NEUTROPHILS % (AUTO) 69 % (42-75); PLATELET COUNT 155 10^3/uL (130-400); RED BLOOD COUNT 3.09 10^6/uL (4.35-5.85); RED CELL DISTRIBUTION WIDTH 12.7 % (10.0-14.5); WHITE BLOOD COUNT 12.5 10^3/uL (4.3-11.0)
[2018-09-16] MEDS: IBUPROFEN 600 MG (MOTRIN) TAB PO SCH ×5 (05:50→23:12)
--- NOTE | 2018-09-16 07:30 | Progress Note (SOAP) ---
Subjective Subjective/Events-last exam Minimal vaginal bleeding. She does report some soreness to the perineum but is controlled with ibuprofen. Review of Systems Date Seen by Provider: Sep 16, 2018 Time Seen by Provider: 07:10 Objective Exam Last Set of Vital Signs Vital Signs Date Time Temp Pulse Resp B/P (MAP) Pulse Ox O2 Delivery O2 Flow Rate FiO2 09/16/18 04:00 97.9 80 18 106/60 (75) 97 Room Air Capillary Refill : I&O Intake and Output 09/16/18 00:00 Intake Total 1800 ml Balance 1800 ml Intake IV Total 1800 ml General: No Acute Distress Abdomen: Soft (With uterus firm) Results/Procedures Lab Laboratory Tests 09/16/18 04:25: White Blood Count 12.5H, Red Blood Count 3.09L, Hemoglobin 10.1#L, Hematocrit 29L, Mean Corpuscular Volume 92, Mean Corpuscular Hemoglobin 33, Mean Corpuscular Hemoglobin Concent 35, Red Cell Distribution Width 12.7, Platelet Count 155, Mean Platelet Volume 8.7, Neutrophils (%) (Auto) 69, Lymphocytes (%) (Auto) 23, Monocytes (%) (Auto) 7, Eosinophils (%) (Auto) 1, Basophils (%) (Auto ) 0, Neutrophils # (Auto) 8.6H, Lymphocytes # (Auto) 2.8, Monocytes # (Auto) 0.9 , Eosinophils # (Auto) 0.1, Basophils # (Auto) 0.0 Assessment/Plan Assessment/Plan Assessment & Plan 1. Status post spontaneous vaginal delivery day number 1 -Continue routine care orders Clinical Quality Measures DVT/VTE Risk/Contraindication: Risk Factor Score Per Nursin RFS Level Per Nursing on Admit: 1=Low/No VTE PPX BENOIT MACHADO MD Sep 16, 2018 07:30
[2018-09-16 09:37] VITALS: BP 118/73
--- NOTE | 2018-09-16 14:31 | Anesthesia-Regional Post-Op ---
Regional Patient Condition Mental Status: Alert, Oriented x3 Circulation: Same as Pre-Op Headache: Absent Sensation: Full Recovery Motor Block: Absent Post Op Complications Complications None Follow Up Care/Instructions Patient Instructions None needed. Anesthesia/Patient Condition Patient is doing well, no complaints, stable vital signs, no apparent adverse anesthesia problems. No complications reported per nursing. MARTIN DOMINGO CRNA Sep 16, 2018 14:31
[2018-09-16 15:52] VITALS: BP 129/87
[2018-09-16 22:00] VITALS: BP 114/71
[2018-09-17 04:58] VITALS: BP 122/76
[2018-09-17] MEDS: IBUPROFEN 600 MG (MOTRIN) TAB PO SCH ×2 (04:58→11:09)
--- NOTE | 2018-09-17 08:00 | Discharge Summary ---
Diagnosis/Chief Complaint Date of Admission Sep 14, 2018 at 18:36 Date of Discharge Sep 17, 2018 Admission Diagnosis Admission Diagnosis 1. IUP at term 39 weeks. Discharge Diagnosis 1. IUP at term 39 weeks. Chief Complaint/HPI Chief Complaint/HPI 23 yo G1 now T1L1 who presented for induction of labor at 39w3d gestation. Patient had care through [facility]. Her EDC was September 18, 2018. Discharge Summary-OBS Procedures 1. Epidural per anesthesia 2. 3. Repair of MLE with vaginal extension Discharge Physical Examination Allergies: Coded Allergies: Sulfa (Sulfonamide Antibiotics) (Verified Allergy, Mild, 06/03/17) hyoscyamine (Verified Allergy, Mild, 06/03/17) linaclotide (Verified Allergy, Mild, 06/03/17) milk (Verified Allergy, Mild, 06/03/17) Vitals & I&Os Vital Sign - Last 12Hours Date Time Temp Pulse Resp B/P (MAP) Pulse Ox O2 Delivery O2 Flow Rate FiO2 09/17/18 04:58 97.8 72 18 122/76 (91) 98 Room Air General Appearance: No Acute Distress Respiratory: Clear to Auscultation Cardiovascular: Regular Rate Abdominal: Soft (with uterus firm) Hospital Course Following admission patient underwent Cervidil cervical ripening. Patient tolerated Cervidil well and was noted to develop a contraction pattern during the service technician of September 15, 2018. She ultimately had artificial rupture of membranes with placement of scalp electrode. Fluid was noted to be clear. She required Pitocin augmentation to develop a contraction pattern. She also received epidural per anesthesia and tolerated well. She had received a midline episiotomy prior to delivery. Ultimately she went on to deliver a term viable male. See labor and delivery summary for full details. Following delivery she underwent routine care orders. Her hemoglobin on September 16 was noted to be 10.1 compared to initial hemoglobin on September 14 of 12.7. Patient was asymptomatic with regards to any lightheadedness. She had no leg pain or shortness of breath. She was felt ready for dismissal during the afternoon of September 16, 2018. Discharge Instructions to patient/family Please see electronic discharge instructions given to patient. Discharge Medications Reviewed and agree with Discharge Medication list on patient's Discharge Instruction sheet Clinical Quality Measures DVT/VTE Risk/Contraindication: Risk Factor Score Per Nursin RFS Level Per Nursing on Admit: 1=Low/No VTE PPX BENOIT MACHADO MD Sep 17, 2018 08:00
[2018-09-17] MEDS ORDERED: IBUP-844 PO (08:02)
[2018-09-17] MEDS ORDERED: ACHD5005 PO (08:02)
--- NOTE | 2018-09-17 08:03 | Discharge Inst-Women's Service ---
Discharge Inst-Women's Serv Depart Medication/Instructions New, Converted or Re-Newed RX: RX on Chart Consults/Follow Up Additional Follow Up: Yes (Dr Machado in 6 weeks.) Activity Activity: Activity as Tolerated Driving Instructions: You May Drive Nothing Inside Vagina: No [place] (for 6 weeks.) Diet Discharge Diet: Regular Diet Return to The Hospital For: as below Symptoms to Report to : Bleeding Excessive, Pain Increased, Fever Over 101 Degrees F, Vaginal Bleeding Increase, Vaginal Discharge Foul For Any Problems or Questions: Contact Your Physician BENOIT MACHADO MD Sep 17, 2018 08:03
[2018-09-17 11:00] VITALS: BP 106/75
[2018-09-17] MEDS ORDERED: MEASLES,MUMPS,RUBELLA 1 EA INJ ONE (13:42)
== END 2018-09-17 15:12 | disposition home or self-care (01) | DRG 807 ==
LOC: LDRP 18:34 → WSo 18:34 → LDRP 18:36
PROVIDERS: ADMIT Family Medicine; ATTEND Family Medicine
PROC: 10E0XZZ Delivery of Products of Conception, External Approach (ICD-10-PCS; principal; 2018-09-15)
PROC: 0UQGXZZ Repair Vagina, External Approach (ICD-10-PCS; 2018-09-15)
PROC: 0W8NXZZ Division of Female Perineum, External Approach (ICD-10-PCS; 2018-09-15)
PROC: 3E0P7GC Introduction of Other Therapeutic Substance into Female Reproductive, Via Natural or Artificial Opening (ICD-10-PCS; 2018-09-15)
DX: O70.0 First degree perineal laceration during delivery (principal); Z3A.39 39 weeks gestation of pregnancy; Z37.0 Single live birth; Z23 Encounter for immunization
CPT/HCPCS: 36415; 85025; 86850; 86900; 86901; 90707

== ENCOUNTER 2019-06-02 13:44 | Emergency (ER) | payer OTHER ==
[~2019-06-02] VITALS: Ht 167.6 cm; Wt 124.9 kg
[~2019-06-02 13:44] MED LIST changes: +ACHD5005 PO; +IBUP-844 PO
--- NOTE | 2019-06-02 13:57 | ED GU-Female ---
General Chief Complaint: Abdominal/GI Problems Stated Complaint: LOWER BACK/PELVIC PAIN Nursing Triage Note: PT STATES LOW ABD/BACK PAIN THAT STARTED ABOUT 1 MONTH AGO, OFF AND ON. STATES RED/BROWN COLOR WHEN SHE WIPES AFTER URINATION. Nursing Sepsis Screen: No Definite Risk Source: patient Exam Limitations: no limitations History of Present Illness Date Seen by Provider: Jun 02, 2019 Time Seen by Provider: 13:55 Initial Comments To ER with a one-month history of sharp suprapubic abdominal pain affecting both lower quadrants. This is intermittent and occurs once every couple of hours every day. Her last menstrual period was 2 weeks ago and that did not change the pain. She does have irritable bowel syndrome and she is on Lyalda for the she does report some brownish red vaginal discharge when wiping. She denies fevers or chills, occasionally has some nausea. Timing/Duration: intermittent, other Severity/Quality: sharp Location: suprapubic (for one month) Radiation: none Activities at Onset: none Prior Genitourinary Problems: none Allergies and Home Medications Allergies Coded Allergies: Sulfa (Sulfonamide Antibiotics) (Verified Allergy, Mild, 06/03/17) hyoscyamine (Verified Allergy, Mild, 06/03/17) linaclotide (Verified Allergy, Mild, 06/03/17) milk (Verified Allergy, Mild, 06/03/17) Home Medications Hydrocodone Bit/Acetaminophen 1 Tab Tab, 1 TAB PO Q4H PRN for PAIN-MODERATE Prescribed by: BENOIT MACHADO on 09/17/18 0802 Ibuprofen 600 Mg Tablet, 600 MG PO Q6H Prescribed by: BENOIT MACHADO on 09/17/18 0802 Patient Home Medication List Home Medication List Reviewed: Yes Review of Systems Review of Systems Constitutional: see HPI EENTM: see HPI Respiratory: no symptoms reported Cardiovascular: no symptoms reported Gastrointestinal: abdominal pain Genitourinary: see HPI Musculoskeletal: no symptoms reported Skin: no symptoms reported Psychiatric/Neurological: No Symptoms Reported Endocrine: No Symptoms Reported Past Oipptny-Movbdj-Rlrvsm Hx Patient Social History Recent Foreign Travel: No Contact w/Someone Who Travel: No Recent Infectious Disease Expo: No Recent Hopitalizations: No Immunizations Up To Date Tetanus Booster (TDap): Unknown PED Vaccines UTD: Yes Date of Influenza Vaccine: Sep 09, 2018 Seasonal Allergies Seasonal Allergies: No Past Medical History Surgeries: Yes (BACK SURG (Laminectomy) AND COLONOSCOPY X2) Abdominal, Orthopedic Respiratory: No Cardiac: No Neurological: No Headaches /Migraines : No Last Menstrual Period: May 19, 2019 Sexually Transmitted Disease: No HIV/AIDS: No Genitourinary: No Gastrointestinal: Yes (Chronic abdominal pain) Colitis, C-Diff Musculoskeletal: Yes Chronic Back Pain Endocrine: No 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 4.0oz. 124.881101xw; 45.4 BMI Method:Stated General Appearance: WD/WN, no apparent distress HEENT: PERRL/EOMI, normal ENT inspection Neck: non-tender, full range of motion Respiratory: no respiratory distress, no accessory muscle use Gastrointestinal: normal bowel sounds, non tender, soft Pelvic: normal external exam (pelvic exam done with Salma at the bedside. There is minor cervical motion tenderness, cervical friability and a brownish discharge.) Extremities: normal range of motion, non-tender Neurologic/Psychiatric: alert, normal mood/affect, oriented x 3 Skin: normal color, warm/dry Currently she only has pain in the left lower abdomen, nothing on the right. Progress/Results/Core Measures Suspected Sepsis Recent Fever Within 48 Hours: No Infection Criteria Present: None New/Unexplained Altered Menta: No Sepsis Screen: No Definite Risk SIRS Temperature:97.5 Pulse: 79 Respiratory Rate: 20 Laboratory Tests 06/02/19 14:00: White Blood Count 9.1 Blood Pressure 135 /92 Mean: 106 Laboratory Tests 06/02/19 14:00: Creatinine 0.63, Platelet Count 249, Total Bilirubin 0.2 Results/Orders Lab Results Laboratory Tests Test 06/02/19 14:00 06/02/19 14:48 06/02/19 15:05 Range/Units White Blood Count 9.1 4.3-11.0 10^3/uL Red Blood Count 4.51 4.35-5.85 10^6/uL Hemoglobin 13.5 11.5-16.0 G/DL Hematocrit 40 35-52 % Mean Corpuscular Volume 89 80-99 FL Mean Corpuscular Hemoglobin 30 25-34 PG Mean Corpuscular Hemoglobin Concent 34 32-36 G/DL Red Cell Distribution Width 12.5 10.0-14.5 % Platelet Count 249 130-400 10^3/uL Mean Platelet Volume 9.4 7.4-10.4 FL Neutrophils (%) (Auto) 70 42-75 % Lymphocytes (%) (Auto) 22 12-44 % Monocytes (%) (Auto) 5 0-12 % Eosinophils (%) (Auto) 3 0-10 % Basophils (%) (Auto) 0 0-10 % Neutrophils # (Auto) 6.3 1.8-7.8 X 10^3 Lymphocytes # (Auto) 2.0 1.0-4.0 X 10^3 Monocytes # (Auto) 0.5 0.0-1.0 X 10^3 Eosinophils # (Auto) 0.3 0.0-0.3 10^3/uL Basophils # (Auto) 0.0 0.0-0.1 10^3/uL Sodium Level 139 135-145 MMOL/L Potassium Level 4.4 3.6-5.0 MMOL/L Chloride Level 108 H 98-107 MMOL/L Carbon Dioxide Level 19 L 21-32 MMOL/L Anion Gap 12 5-14 MMOL/L Blood Urea Nitrogen 8 7-18 MG/DL Creatinine 0.63 0.60-1.30 MG/DL Estimat Glomerular Filtration Rate > 60 BUN/Creatinine Ratio 13 Glucose Level 75 70-105 MG/DL Calcium Level 9.2 8.5-10.1 MG/DL Corrected Calcium 9.2 8.5-10.1 MG/DL Total Bilirubin 0.2 0.1-1.0 MG/DL Aspartate Amino Transf (AST/SGOT) 21 5-34 U/L Alanine Aminotransferase (ALT/SGPT) 14 0-55 U/L Alkaline Phosphatase 87 40-136 U/L Total Protein 7.6 6.4-8.2 GM/DL Albumin 4.0 3.2-4.5 GM/DL Urine Color YELLOW Urine Clarity SLIGHTLY CLOUDY Urine pH 5 5-9 Urine Specific [place] 1.025 H 1.016-1.022 Urine Protein 2+ H NEGATIVE Urine Glucose (UA) NEGATIVE NEGATIVE Urine Ketones NEGATIVE NEGATIVE Urine Nitrite NEGATIVE NEGATIVE Urine Bilirubin NEGATIVE NEGATIVE Urine Urobilinogen NORMAL NORMAL MG/DL Urine Leukocyte Esterase 2+ H NEGATIVE Urine RBC (Auto) 4+ H NEGATIVE Urine RBC 2-5 H /HPF Urine WBC 5-10 H /HPF Urine Squamous Epithelial Cells 10-25 H /HPF Urine Crystals PRESENT H /LPF Urine Amorphous Sediment MOD GABRIELLA URATES H /LPF Urine Bacteria LARGE H /HPF Urine Casts NONE /LPF Urine Mucus SMALL H /LPF Urine Culture Indicated YES Micro Results Microbiology 06/02/19 Genital Culture, Resulted Pending 06/02/19 Wet Prep - Final, Resulted My Orders Orders - JESSI SALCEDO APRN Ua Culture If Indicated (06/02/19 13:45) Urine Bedside (06/02/19 13:45) Ketorolac Injection (Toradol Injection) (06/02/19 14:00) Us Non Ob Pelvis Comp/Transvag (06/02/19 13:54) Cbc With Automated Diff (06/02/19 13:54) Comprehensive Metabolic Panel (06/02/19 13:54) Ed Iv/Invasive Line Start (06/02/19 13:54) Wet Prep (06/02/19 13:54) Neisseria Gonorrhea Swab (06/02/19 13:54) Genital Culture (06/02/19 13:54) Chlamydia Trachomatis Swab (06/02/19 13:54) Urine Culture (06/02/19 14:48) Medications Given in ED Current Medications Medications Dose Ordered Sig/Josué Route Start Time Stop Time Status Last Admin Dose Admin Ketorolac Tromethamine 30 mg ONCE ONCE IVP 06/02/19 14:00 06/02/19 14:01 DC 06/02/19 14:04 30 MG Vital Signs/I&O 06/02/19 06/02/19 13:51 14:04 Temp 97.5 97.5 Pulse 79 Resp 20 B/P (MAP) 135/92 (106) Pulse Ox 99 O2 Delivery Room Air Capillary Refill : Less Than 3 Seconds Blood Pressure Mean: 106 Diagnostic Imaging Diagonstic Imaging: Xray Comments NAME: OSVALDO MATA [facility] REC#: [id number] PT STATUS: REG ER : 1995 PHYSICIAN: JESSI SALCEDO APRN ADMIT DATE: 06/02/19/ER Draft Date of Exam:06/02/19 US NON OB PELVIS COMP/TRANSVAG PROCEDURE: US Non-ob pelvis comp/trans. TECHNIQUE: Multiple realtime grayscale images were obtained of the pelvis in various projections endovaginally. Transabdominal imaging was also performed. INDICATION: Low back and pelvic pain COMPARISON: None FINDINGS: The uterus is normal in size measuring 7.8 x 5.4 x 3.9 cm. No uterine masses are seen. The endometrium is not thickened, measuring 7 mm. There is a fluid collection posterior to the uterus which measures 2.5 x 2.4 x 2.6 cm. This is located slightly to the right. This may be ovarian in origin, although the right ovary is not seen. The left ovary is not seen as well. This may be due to shadowing bowel gas. No significant free fluid is seen. IMPRESSION: 1. Right adnexal cyst posterior to the uterus measuring up to 2.6 cm in diameter. The bilateral ovaries are not seen. 2. Normal appearing uterus. Dictated on workstation # [id number] Dict: 06/02/19 1502 Trans: 06/02/19 1508 [facility] [id number] Interpreted by: MICHAEL PATHAK MD Electronically signed by: Departure Impression Primary Impression: Cervicitis Additional Impression: UTI (urinary tract infection) Qualified Codes: N30.00 - Acute cystitis without hematuria Disposition: 01 HOME, SELF-CARE Condition: Stable Departure-Patient Inst. Decision time for Depature: 14:42 Referrals: ANGELA WILLS MD (PCP) Primary Care Physician HEVER MIRZA DENNIS G MD SHAW, ANGELA C DO Patient Instructions: NO INSTRUCTIONS GIVEN Add. Discharge Instructions: 1. Call one of the gynecologists listed today to make an appointment to be seen later next week for recheck. 2. Antibiotics as directed All discharge instructions reviewed with patient and/or family. Voiced understanding. Scripts Doxycycline Hyclate (Doxycycline Hyclate) 100 Mg Tablet 100 MG PO BID, #20 TAB 0 Refills Prov: JESSI SALCEDO APRN 06/02/19 JESSI SALCEDO APRN Jun 02, 2019 13:57
[2019-06-02] MEDS ORDERED: KETOROLAC 30 MG/ML VIAL IVP ONE (14:00)
[2019-06-02 14:10] LABS: BASOPHILS % (AUTO) 0 % (0-10); EOSINOPHILS # (AUTO) 0.3 10^3/uL (0.0-0.3); EOSINOPHILS % (AUTO) 3 % (0-10); HEMATOCRIT 40 % (35-52); HEMOGLOBIN 13.5 G/DL (11.5-16.0); LYMPHOCYTES % (AUTO) 22 % (12-44); MEAN CORPUSCULAR HEMOGLOBIN 30 PG (25-34); MEAN CORPUSCULAR HGB CONC 34 G/DL (32-36); MEAN CORPUSCULAR VOLUME 89 FL (80-99); MEAN PLATELET VOLUME 9.4 FL (7.4-10.4); MONOCYTES # (AUTO) 0.5 X 10^3 (0.0-1.0); MONOCYTES % (AUTO) 5 % (0-12); NEUTROPHILS # (AUTO) 6.3 X 10^3 (1.8-7.8); NEUTROPHILS % (AUTO) 70 % (42-75); PLATELET COUNT 249 10^3/uL (130-400); RED CELL DISTRIBUTION WIDTH 12.5 % (10.0-14.5); WHITE BLOOD COUNT 9.1 10^3/uL (4.3-11.0)
[2019-06-02 14:28] LABS: ALANINE AMINOTRANSFERASE 14 U/L (0-55); ALKALINE PHOSPHATASE 87 U/L (40-136); BILIRUBIN,TOTAL 0.2 MG/DL (0.1-1.0); BUN/CREATININE RATIO 13; CALCIUM 9.2 MG/DL (8.5-10.1); CARBON DIOXIDE 19 MMOL/L (21-32); CHLORIDE 108 MMOL/L (98-107); CREATININE SERUM 0.63 MG/DL (0.60-1.30); GFR ESTIMATED > 60; GLUCOSE 75 MG/DL (70-105); POTASSIUM 4.4 MMOL/L (3.6-5.0); SODIUM 139 MMOL/L (135-145); TOTAL PROTEIN 7.6 GM/DL (6.4-8.2)
[2019-06-02 15:02] LABS: BILIRUBIN,URINE NEGATIVE (NEGATIVE); CLARITY,URINE SLIGHTLY CLOUDY; COLOR,URINE YELLOW; GLUCOSE, URINE (UA) NEGATIVE (NEGATIVE); KETONES,URINE NEGATIVE (NEGATIVE); LEUKOCYTE ESTERASE ,URINE 2+ (NEGATIVE); NITRITE,URINE NEGATIVE (NEGATIVE); PH,URINE 5 (5-9); PROTEIN,URINE 2+ (NEGATIVE); UROBILINOGEN,URINE NORMAL (NORMAL)
--- NOTE | 2019-06-02 15:08 | Diagnostic Imaging Report ---
PROCEDURE: US Non-ob pelvis comp/trans. TECHNIQUE: Multiple realtime grayscale images were obtained of the pelvis in various projections endovaginally. Transabdominal imaging was also performed. INDICATION: Low back and pelvic pain COMPARISON: None FINDINGS: The uterus is normal in size measuring 7.8 x 5.4 x 3.9 cm. No uterine masses are seen. The endometrium is not thickened, measuring 7 mm. There is a fluid collection posterior to the uterus which measures 2.5 x 2.4 x 2.6 cm. This is located slightly to the right. This may be ovarian in origin, although the right ovary is not seen. The left ovary is not seen as well. This may be due to shadowing bowel gas. No significant free fluid is seen. IMPRESSION: 1. Right adnexal cyst posterior to the uterus measuring up to 2.6 cm in diameter. The bilateral ovaries are not seen. 2. Normal appearing uterus. Dictated by: Dictated on workstation # [id number]
[2019-06-02 15:13] LABS: BACTERIA,URINE LARGE /HPF
[2019-06-02 15:14] LABS: AMORPHOUS SEDIMENT,UR MOD AMOR URATES /LPF
[2019-06-02] MEDS ORDERED: cefTRIAXone FOR IV USE 1,000 MG in WATER (STERILE) FOR INJECTION 10 ML IV ONE (15:30)
[2019-06-02] MEDS ORDERED: AZITHROMYCIN 250 MG TAB (ZITHROMAX) PO SCH (15:30)
[2019-06-02] MEDS ORDERED: DOXY100T2 PO (15:31)
[2019-06-02 16:04] VITALS: BP 145/93
== END 2019-06-02 16:03 | disposition home or self-care (01) ==
LOC: EDUNIT# 13:44 → ER 13:45
DX: N39.0 Urinary tract infection, site not specified (principal); N72 Inflammatory disease of cervix uteri; G43.909 Migraine, unspecified, not intractable, without status migrainosus; F41.9 Anxiety disorder, unspecified; Z87.19 Personal history of other diseases of the digestive system; Z88.2 Allergy status to sulfonamides; Z88.8 Allergy status to other drugs, medicaments and biological substances; Z91.011 Allergy to milk products; Z98.1 Arthrodesis status
CPT/HCPCS: 36415; 76830; 76856; 80053; 81000; 84703; 85025; 87070; 87088; 87205; 87210; 87491; 87591

== ENCOUNTER → 2021-03-27 | Outpatient (CLI) | payer OTHER ==
[~2021-03-27] MED LIST changes: -AMIT10TA6 PO; +AMT10T PO; +DOXY100T2 PO
--- NOTE | 2021-03-27 18:10 | Diagnostic Imaging Report ---
PROCEDURE: US OB SINGLE FETUS <14 WKS. TECHNIQUE: Multiple real-time grayscale images were obtained over the gravid uterus in various projections. INDICATION: ultrasound for dates. FINDINGS: There is single live intrauterine fetus with crown-rump length of 2.5 cm consistent with 9 week 2 day gestation. Heart rate of 176 beats per minute. There is a small subchorionic fluid collection. Amniotic sac appears normal. Maternal adnexa is normal. IMPRESSION: Single live intrauterine fetus with current biometric measurements average for 9 week 2 day gestation. Dictated by: Dictated on workstation # [id number]
== END ==
LOC: RAD 03-26 15:00
PROVIDERS: ATTEND Family Medicine
DX: Z34.91 Encounter for supervision of normal pregnancy, unspecified, first trimester (principal); Z3A.09 9 weeks gestation of pregnancy
CPT/HCPCS: 76801

== ENCOUNTER → 2021-06-11 | Outpatient (CLI) | payer OTHER ==
--- NOTE | 2021-06-11 17:19 | Diagnostic Imaging Report ---
INDICATION: . survey. TECHNIQUE: Multiple real-time grayscale images were obtained over the gravid uterus. COMPARISON: None. FINDINGS: There is a single live intrauterine gestation in breech presentation. The amniotic fluid is subjectively normal with a vertical pocket measuring up to 4.4 cm. The placenta is anterior without evidence of previa. A four-chamber heart is seen. The bladder is seen. Two umbilical arteries are demonstrated. Cord insertion is seen at the fetus. Bilateral kidneys are seen. The stomach is seen. The right ventricular outflow tract is seen. The cerebellum appears normal in size. The cisterna magna is seen. The lateral ventricles are normal in size. The upper spine is seen. The lower spine is seen. The nose and lips are seen. The aortic arch is seen. The profile is seen. A three-vessel cord is seen in grayscale. Bilateral lower extremities are seen. Bilateral upper extremities are seen. Biometrical measurements are as follows: Biparietal 4.63 cm, age 20 weeks 0 days. Head circumference 18.05 cm, age 20 weeks 4 days. Abdominal circumference 15.61 cm, age 20 weeks 6 days. Femur length 3.50 cm, age 21 weeks 1 days. Sonographic estimate age: 20 weeks 5 days. Sonographic estimated date of delivery: 10/24/2021. Estimated Weight: 380 gm (+/- 55 gm). LMP percentile: 75%. heart rate: 139 beats per minute. number: 1 of 1. IMPRESSION: 1. Single live intrauterine gestation measuring at 20 weeks and 5 days, which is within range of the clinical dates of 20 weeks and 2 days. 2. Anatomic survey. No abnormality is identified. 3. Breech presentation. Dictated by: Dictated on workstation # [id number]
== END ==
LOC: RAD 14:55
PROVIDERS: ATTEND Family Medicine
DX: O32.1XX0 Maternal care for breech presentation, not applicable or unspecified (principal); Z3A.20 20 weeks gestation of pregnancy
CPT/HCPCS: 76805

== ENCOUNTER 2021-10-22 06:00 | Inpatient (IN) | payer OTHER ==
[2021-10-22] VITALS (49 sets, daily range): BP systolic 89–164; BP diastolic 51–91
[~2021-10-22] VITALS: Ht 168 cm; Wt 129.5 kg
--- NOTE | 2021-10-22 06:34 | History & Physical-OB ---
OB - Chief Complaint & HPI Date/Time Date of Admission: Date of Admission: Oct 22, 2021 at 06:08 Date seen by a Provider: Oct 22, 2021 Time Seen by a Provider: 06:33 Chief Complaint/History OB-Reason for Admission/Chief: Induction of Labor Hx : 2 Hx Para: 1 Admission Nurse Assessment Rev: Yes History of Labs GBS negative Allergies and Home Medications Allergies Coded Allergies: Sulfa (Sulfonamide Antibiotics) (Verified Allergy, Mild, 06/03/17) hyoscyamine (Verified Allergy, Mild, 06/03/17) linaclotide (Verified Allergy, Mild, 06/03/17) milk (Verified Allergy, Mild, 06/03/17) Patient Home Medication List Home Medication List Reviewed: Yes Doxycycline Hyclate (Doxycycline Hyclate) 100 Mg Tablet, 100 MG PO BID Prescribed by: JESSI SALCEDO on 06/02/19 1531 Hydrocodone Bit/Acetaminophen (Lortab 5 Mg Tablet) 1 Tab Tab, 1 TAB PO Q4H PRN for PAIN-MODERATE Prescribed by: BENOIT MACHADO on 09/17/18 08 Ibuprofen (Ibu) 600 Mg Tablet, 600 MG PO Q6H Prescribed by: BENOIT MACHADO on 09/17/18 0802 OB - History Hx of Present Care: Yes Ultrasounds: Normal mid trimester US Obstetrical Complications: None Medical Complications: None Obstetrical History Hx Termination: No Hx Multiple Gestation: No Hx Stillbirth: No Hx Complication: No Hx Induced Hypertens: No Hx Maternal Gestational Diabet: No Delivery History Adverse Rxn to Tranfusion: No Patient Past Medical History SAB at 6 weeks Microscopic Colitis Bulging Discs Past Surgical History: Laminectomy Immunizations Hepatitis A: Yes Hepatitis B: Yes Tetanus Booster (TDap): Unknown Date of Influenza Vaccine: Sep 09, 2018 OB - Admission Exam Physical Exam HEENT: Moist Membranes Heart: Rhythm Normal Lungs: Clear Abdomen: Gravid Cervical Dilatation: 1cm OB - Assessment/Plan/Diagnosis Assessment Assessment: induction of labor Admission Dx 1. IUP at term 39 weeks. Admission Status: Inpatient Order (span 2 midnights) Reason for Inpatient Admission: L&D Plan Plan: Induction Induction Method: BENOIT MIR MD Oct 22, 2021 06:34
[2021-10-22] MEDS ORDERED: MINERAL OIL CONCENTRATE 99.9% 15 ML UDC TOP PRN (07:15)
[2021-10-22] MEDS ORDERED: D5 LR IV SOLUTION 1,000 ML IV SCH (07:15)
[2021-10-22 07:17] LABS: BASOPHILS % (AUTO) 0 % (0-10); EOSINOPHILS # (AUTO) 0.2 10^3/uL (0.0-0.3); EOSINOPHILS % (AUTO) 2 % (0-10); HEMATOCRIT 38 % (35-52); HEMOGLOBIN 12.9 g/dL (11.5-16.0); LYMPHOCYTES % (AUTO) 23 % (12-44); MEAN CORPUSCULAR HEMOGLOBIN 31 pg (25-34); MEAN CORPUSCULAR HGB CONC 34 g/dL (32-36); MEAN CORPUSCULAR VOLUME 92 fL (80-99); MEAN PLATELET VOLUME 8.7 fL (9.0-12.2); MONOCYTES # (AUTO) 0.5 10^3/uL (0.0-1.0); MONOCYTES % (AUTO) 5 % (0-12); NEUTROPHILS % (AUTO) 68 % (42-75); PLATELET COUNT 177 10^3/uL (130-400); WHITE BLOOD COUNT 8.8 10^3/uL (4.3-11.0)
[2021-10-22] MEDS ORDERED: OXYTOCIN PRE-MIX DRIP 500 ML IV SCH ×2 (07:30→14:00)
[2021-10-22 08:24] LABS: BILIRUBIN,URINE NEGATIVE (NEGATIVE); CLARITY,URINE CLOUDY; COLOR,URINE YELLOW; GLUCOSE, URINE (UA) NEGATIVE (NEGATIVE); KETONES,URINE NEGATIVE (NEGATIVE); LEUKOCYTE ESTERASE ,URINE 2+ (NEGATIVE); NITRITE,URINE NEGATIVE (NEGATIVE); PROTEIN,URINE TRACE (NEGATIVE)
[2021-10-22 08:43] LABS: BACTERIA,URINE LARGE /HPF; CALCIUM OXALATE CRYSTALS,UR LARGE /LPF; RBC,URINE 25-50 /HPF; WBC,URINE 25-50 /HPF
[2021-10-22] MEDS ORDERED: fentaNYL 2 mcg/ml BUPIVA 0.125 100 ML ONE (08:56)
[2021-10-22] MEDS ORDERED: fentaNYL INJ 100 MCG/2 ML AMP ONE (09:38)
[2021-10-22] MEDS ORDERED: BUPIVACAINE 0.25% 30 ML (SENSORCAINE) VIAL ONE (09:38)
[2021-10-22] MEDS ORDERED: NALOXONE 0.4 MG/ML 1 ML (NARCAN) VIAL IV PRN ×2 (10:30→14:00)
[2021-10-22] MEDS ORDERED: fentaNYL 2 mcg/ml BUPIVA 0.125 100 ML IV SCH (10:30)
[2021-10-22] MEDS ORDERED: LACTATED RINGERS 1,000 ML IV ONE (10:30)
[2021-10-22] MEDS ORDERED: CATHETER FLUSH 10 ML SYR IV PRN (10:30)
--- NOTE | 2021-10-22 13:57 | OB Labor & Delivery Record ---
L&D History Date of Service Date of Service: Oct 22, 2021 History Expected Date of Delivery: Oct 28, 2021 Gestational Age in Weeks: 39 Hx : 2 Hx Para: 2 Complications Events: Routine care Operative Indications (Cesarea: N/A-Vaginal Delivery Intrapartal Events: None Other Complications none L&D Stage1 Stage One Onset of Labor - Date: Oct 22, 2021 Onset of Labor - Time: 06:45 Monitors and Tracing Monitor Mode: Internal Heart Rate: 135 Monitor Accelerations: Uniform Monitor Decelerations: None Station: -3 Assisted Variability: Average (6-10) Short Term Variability: Present Presentation: Vertex Vital Signs VS - Last 72 Hours, by Label 10/22/21 10/22/21 10/22/21 10/22/21 07:45 08:05 08:20 08:35 Temp 36.9 Pulse 83 82 82 81 Resp 20 20 20 20 B/P (MAP) 117/68 (84) 119/61 (80) 121/70 (87) 121/69 (86) O2 Delivery Room Air Room Air Room Air Room Air 10/22/21 10/22/21 10/22/21 10/22/21 08:50 08:53 09:05 09:20 Pulse 71 71 88 78 Resp 20 20 20 20 B/P (MAP) 136/59 (84) 130/60 (83) 132/72 (92) 140/72 (94) O2 Delivery Room Air Room Air Room Air Room Air 10/22/21 10/22/21 10/22/21 10/22/21 09:35 09:50 09:54 09:57 Temp 36.9 Pulse 78 88 106 86 Resp 20 20 20 20 B/P (MAP) 144/80 (101) 149/84 (105) 154/91 (112) 164/73 (103) Pulse Ox 99 100 O2 Delivery Room Air Room Air Room Air Room Air 10/22/21 10/22/21 10/22/21 10/22/21 10:02 10:06 10:10 10:14 Pulse 97 100 99 99 Resp 20 20 20 20 B/P (MAP) 160/72 (101) 151/74 (99) 128/84 (99) 125/76 (92) Pulse Ox 100 93 93 93 O2 Delivery Room Air Room Air Room Air Room Air 10/22/21 10/22/21 10/22/21 10/22/21 10:18 10:22 10:26 10:30 Pulse 78 87 88 93 Resp 20 20 20 20 B/P (MAP) 132/73 (92) 128/68 (88) 128/76 (93) 138/72 (94) Pulse Ox 97 97 92 92 O2 Delivery Room Air Room Air Room Air Room Air 10/22/21 10/22/21 10/22/21 10:34 10:42 10:46 Pulse 96 105 90 Resp 20 20 20 B/P (MAP) 139/77 (97) 125/56 (79) 118/64 (82) Pulse Ox 92 92 98 O2 Delivery Room Air Room Air Room Air Signs of Distress by FHT Signs of Distress no Rupture of Membranes Spontaneous Ruture of Membrane: No Amniotic Membrane Rupture Time: 0645 Amniotic Membrane Fluid Desc.: Clear Induction/Anesthesia Epidural Cath Placement - Time: 57 L&D Stage2 Stage Two Stage II Date: Oct 22, 2021 Stage II Time: 13:33 Monitors and Tracing Monitor Mode: Internal Heart Rate: 135 Monitor Accelerations: Uniform Adjunct Latin Professor Variability: Average (6-10) Short Term Variability: Present Position: Left Occiput Anterior Presentation: Vertex Signs of Distress by FHT Signs of Distress no Cord Descript/Complications Cord Vessel Description: 3 Vessels Delivery Type Infant Delivery Method: Spontaneous Vaginal Anterior Shoulder: Left Episiotomy/Perineal Laceration Laceraction(s)/Extensions: No Episiotomy Description: Perineal Extension/lac, 1st degree Sutures Used: Vicryl Condition of Infant Delivery 1 minute Comment: 9 5 minute Comment: 9 Condition of Condition of : Living Exam: No Observed Abnormalities Resuscitation Resuscitation: N/A - Spontaneous Resp L&D Stage3 Stage Three Stage III Date: Oct 22, 2021 Stage III Time: 13:38 Pictocin Pitocin Administration mu/min: 8 Pitocin ml/hr: 8 Placenta Delivery Placenta Delivery: Spontaneous Delivery Summary Summary Estimated blood loss (mL): 200 Condition of Delivery Examined: Cervix Examined Post Hemorrhage: No Intervention Required none BENOIT MACHADO MD Oct 22, 2021 13:57
[2021-10-22] MEDS ORDERED: BENZOCAINE/MENTHOL (DERMOPLAST) 56 ML CAN TP PRN (14:00)
[2021-10-22] MEDS ORDERED: CATHETER FLUSH 10 ML SYR IV SCH (14:00)
[2021-10-22] MEDS ORDERED: WITCH HAZEL(TUCKS) 40 EA JAR TOP PRN (14:00)
[2021-10-22] MEDS ORDERED: MEASLES,MUMPS,RUBELLA 1 EA INJ SQ ONE (14:00)
[2021-10-22] MEDS ORDERED: TETANUS,DIPTH,PERTUSS P/F (BOOSTRIX) 0.5 ML VIAL IM ONE ×2 (14:00→20:49)
[2021-10-22] MEDS: IBUPROFEN 600 MG (MOTRIN) TAB PO SCH ×2 (16:44→23:15)
[2021-10-22] MEDS: ACETAMINOPHEN 500 MG TAB (TYLENOL) PO SCH ×2 (16:44→23:16)
[2021-10-22] MEDS: CATHETER FLUSH 10 ML SYR IV SCH ×2 (20:46→23:16)
[2021-10-22] MEDS: DOCUSATE SODIUM 100 MG (COLACE) CAP PO SCH (20:56)
[2021-10-22] MEDS ORDERED: FLU QUADRIvalent (6 MON+) 60 MCG/0.5 ML (FLULAVAL) IM ONE (21:00)
[2021-10-23 04:15] VITALS: BP 118/64
[2021-10-23] MEDS: IBUPROFEN 600 MG (MOTRIN) TAB PO SCH ×2 (04:27→11:05)
[2021-10-23] MEDS: ACETAMINOPHEN 500 MG TAB (TYLENOL) PO SCH ×2 (04:27→11:05)
[2021-10-23] MEDS: CATHETER FLUSH 10 ML SYR IV SCH (04:46)
[2021-10-23 05:54] LABS: BASOPHILS % (AUTO) 0 % (0-10); EOSINOPHILS # (AUTO) 0.2 10^3/uL (0.0-0.3); EOSINOPHILS % (AUTO) 2 % (0-10); HEMATOCRIT 33 % (35-52); HEMOGLOBIN 11.3 g/dL (11.5-16.0); LYMPHOCYTES # (AUTO) 2.6 10^3/uL (1.0-4.0); LYMPHOCYTES % (AUTO) 26 % (12-44); MEAN CORPUSCULAR HEMOGLOBIN 32 pg (25-34); MEAN CORPUSCULAR HGB CONC 34 g/dL (32-36); MEAN CORPUSCULAR VOLUME 93 fL (80-99); MEAN PLATELET VOLUME 8.6 fL (9.0-12.2); MONOCYTES # (AUTO) 0.7 10^3/uL (0.0-1.0); MONOCYTES % (AUTO) 7 % (0-12); NEUTROPHILS # (AUTO) 6.4 10^3/uL (1.8-7.8); NEUTROPHILS % (AUTO) 64 % (42-75); PLATELET COUNT 133 10^3/uL (130-400)
[2021-10-23] MEDS ORDERED: FLU QUADRIvalent (3YOA+) 60 mcg/0.5 ml 2021-22(AFLURIA) IM ONE (07:00)
--- NOTE | 2021-10-23 07:07 | Discharge Summary ---
Diagnosis/Chief Complaint Date of Admission Oct 22, 2021 at 06:08 Date of Discharge October 23, 2021 Admission Diagnosis Admission Diagnosis 1. Intrauterine at 39 weeks gestation Discharge Diagnosis 1. Intrauterine at 39 weeks gestation Chief Complaint/HPI Chief Complaint/HPI 26-year-old 2 now term 2 who initially presented to labor and delivery during the morning of October 22, 2021 for induction of labor at 39 weeks 1 day gestation. Her EDC was noted to be October 28, 2021. Her GBS status at 36 weeks was noted to be negative. Discharge Summary-OBS Procedures 1. Epidural per anesthesia 2. Spontaneous vaginal delivery 3. Repair of first-degree perineal laceration Discharge Physical Examination Allergies: Coded Allergies: Sulfa (Sulfonamide Antibiotics) (Verified Allergy, Mild, 06/03/17) hyoscyamine (Verified Allergy, Mild, 06/03/17) linaclotide (Verified Allergy, Mild, 06/03/17) milk (Verified Allergy, Mild, 06/03/17) Vitals & I&Os Vital Sign - Last 12Hours Date Time Temp Pulse Resp B/P (MAP) Pulse Ox O2 Delivery O2 Flow Rate FiO2 10/23/21 04:15 85 18 118/64 (82) 99 Room Air 10/22/21 20:04 36.7 General Appearance: No Acute Distress Respiratory: Clear to Auscultation Cardiovascular: Regular Rate Abdominal: Soft Hospital Course Was the Problem List Reviewed?: Yes Following admission patient underwent routine antepartum care orders. She ultimately received epidural per anesthesia and tolerated well. She required Pitocin augmentation to achieve adequate labor She was maxed at 10 mU/m of Pitocin at time of delivery. Ultimately she delivered over a1st degree perineal laceration a term viable male. Infant received Apgars of 9 at 1 minute and 9 at 5 minutes. Following delivery she underwent routine care orders. She had no complications during the remainder of hospital stay. Her hemoglobin in the morning of October 23 was noted to be 11.3 compared to admission of 12.9. She was without any complaints of shortness of breath or leg pain. She tolerated regular diet. She was ready for dismissal during the afternoon of October 23, 2021. Labs Laboratory Tests 10/23/21 05:30: White Blood Count 10.0, Red Blood Count 3.56L, Hemoglobin 11.3L, Hematocrit 33L, Mean Corpuscular Volume 93, Mean Corpuscular Hemoglobin 32, Mean Corpuscular Hemoglobin Concent 34, Red Cell Distribution Width 12.7, Platelet Count 133, Mean Platelet Volume 8.6L, Immature Granulocyte % (Auto) 1, Neutrophils (%) (Auto) 64, Lymphocytes (%) (Auto) 26, Monocytes (%) (Auto) 7, Eosinophils (%) (Auto) 2, Basophils (%) (Auto) 0, Neutrophils # (Auto) 6.4, Lymphocytes # (Auto) 2.6, Monocytes # (Auto) 0.7, Eosinophils # (Auto) 0.2, Basophils # (Auto) 0.0, Immature Granulocyte # (Auto) 0.1 Discharge Instructions to patient/family Please see electronic discharge instructions given to patient. Discharge Medications Reviewed and agree with Discharge Medication list on patient's Discharge Instruction sheet BENOIT MACHADO MD Oct 23, 2021 07:07
--- NOTE | 2021-10-23 07:09 | Discharge Inst-Women's Service ---
Discharge Inst-Women's Serv Depart Medication/Instructions New, Converted or Re-Newed RX: Other Instructions Continue with vitamins 1 daily for the next month. Problems Reviewed?: Yes Consults/Follow Up Additional Follow Up: Yes (Dr Machado in 1 week in his office) Activity Activity: Activity as Tolerated Driving Instructions: No Driving for 1 Week Nothing Inside Vagina: No [place] (for 6 weeks) Diet Discharge Diet: Regular Diet Return to The Hospital For: as below Symptoms to Report to : Bleeding Excessive, Fever Over 101 Degrees F, Vaginal Discharge Foul For Any Problems or Questions: Contact Your Physician BENIOT MACHADO MD Oct 23, 2021 07:09
[2021-10-23 08:39] VITALS: BP 116/60
[2021-10-23] MEDS: DOCUSATE SODIUM 100 MG (COLACE) CAP PO SCH (11:05)
[2021-10-23 14:06] VITALS: BP 123/60
--- NOTE | 2021-10-23 15:03 | Anesthesia-Regional Post-Op ---
Regional Patient Condition Mental Status: Alert, Oriented x3 Circulation: Same as Pre-Op Headache: Absent Sensation: Full Recovery Motor Block: Absent Post Op Complications Complications None Follow Up Care/Instructions Patient Instructions None needed. Anesthesia/Patient Condition Patient is doing well, no complaints, stable vital signs, no apparent adverse anesthesia problems. ANKITA BARRETT DO Oct 23, 2021 15:03
== END 2021-10-23 16:30 | disposition home or self-care (01) | DRG 807 ==
LOC: LDRP 06:08
PROVIDERS: ADMIT Family Medicine; ATTEND Family Medicine
PROC: 10E0XZZ Delivery of Products of Conception, External Approach (ICD-10-PCS; principal; 2021-10-22)
PROC: 0HQ9XZZ Repair Perineum Skin, External Approach (ICD-10-PCS; 2021-10-22)
PROC: 0W8NXZZ Division of Female Perineum, External Approach (ICD-10-PCS; 2021-10-22)
DX: O70.0 First degree perineal laceration during delivery (principal); Z37.0 Single live birth; Z3A.39 39 weeks gestation of pregnancy; Z88.2 Allergy status to sulfonamides; Z23 Encounter for immunization
CPT/HCPCS: 36415; 81000; 85025; 86850; 86900; 86901; 87088; 90715

== ENCOUNTER 2021-11-09 14:22 | Emergency (ER) | payer OTHER ==
[~2021-11-09] VITALS: Ht 170.2 cm; Wt 117.9 kg
--- NOTE | 2021-11-09 14:59 | ED General ---
General Chief Complaint: Back Problems Stated Complaint: BACK PAIN Nursing Triage Note: PT AMBULATE TO ROOM FT1 WITH C/O LEFT LOWER BACK PAIN AND NAUSEA X3 DAYS. PT STATES SHE HAS NOT SEEN HER PCP FOR C/O BECAUSE SHE HAS NOT HAD THE TIME TO DO SO. Source of Information: Patient Exam Limitations: No Limitations History of Present Illness Date Seen by Provider: Nov 09, 2021 Time Seen by Provider: 14:48 Initial Comments Patient is a 26-year-old female who presents to the emergency department today with a chief complaint of left-sided lower back pain, nausea, dysuria, urgency and frequency. Symptoms have been ongoing for about 4 days. Patient states that she took a dose of Tylenol this morning that did not really help. Patient is approximately 1 month normal labor and delivery. She is breast- feeding. She complains of a little suprapubic abdominal discomfort with her nausea. Patient states she thinks she is waited too long to be seen. No measured fevers at home. No Covid concerns. She is not Covid vaccinated. No Covid positive contacts that she is aware of. She has had previous back surgery. All other review of systems reviewed and negative except as stated. Timing/Duration: 3-4 Days Severity: Moderate Modifying Factors: worse with Movement Associated Systoms: Malaise, Nausea/Vomiting, Weakness Allergies and Home Medications Allergies Coded Allergies: Sulfa (Sulfonamide Antibiotics) (Verified Allergy, Mild, 06/03/17) hyoscyamine (Verified Allergy, Mild, 06/03/17) linaclotide (Verified Allergy, Mild, 06/03/17) milk (Verified Allergy, Mild, 06/03/17) Patient Home Medication List Home Medication List Reviewed: Yes Ibuprofen (Ibu) 600 Mg Tablet, 600 MG PO Q6H Prescribed by: BENOIT MACHADO on 09/17/18 0802 Review of Systems Review of Systems Constitutional: see HPI EENTM: no symptoms reported Respiratory: no symptoms reported Cardiovascular: no symptoms reported Gastrointestinal: abdominal pain, nausea Genitourinary: decreased output, dysuria, frequency, hesitancy : No Musculoskeletal: back pain (left lower) Skin: no symptoms reported Psychiatric/Neurological: No Symptoms Reported All Other Systems Reviewed Negative Unless Noted: Yes Past Nxptneg-Yqfjmp-Vksinh Hx Patient Social History Tobacco Use?: No Smoking Status: Never a Smoker Smokeless Tobacco Frequency: Never a User Use of E-Cig and/or Vaping dev: No Use of E-Cig and/or Vaping [place]: Never a User Substance use?: No Alcohol Use?: No Pt feels they are or have been: No Immunizations Up To Date Tetanus Booster (TDap): Unknown PED Vaccines UTD: Yes Seasonal Allergies Seasonal Allergies: No Past Medical History Surgeries: Yes (BACK SURG (Laminectomy) AND COLONOSCOPY X2) Abdominal, Orthopedic Respiratory: No Cardiac: No Neurological: Yes Headaches /Migraines Sexually Transmitted Disease: No HIV/AIDS: No Genitourinary: No Gastrointestinal: Yes (Chronic abdominal pain) Colitis, C-Diff Musculoskeletal: Yes Chronic Back Pain Endocrine: No 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 4.0oz. [id number]; 40.00 BMI Method:Stated General Appearance: No Apparent Distress, WD/WN Eyes: Bilateral Eye Normal Inspection, Bilateral Eye PERRL, Bilateral Eye EOMI HEENT: Other (dry oral mucosa) Neck: Non Tender, Supple Respiratory: Lungs Clear, Normal Breath Sounds, No Accessory Muscle Use, No Respiratory Distress Cardiovascular: Regular Rate, Rhythm, Normal Peripheral Pulses Gastrointestinal: Normal Bowel Sounds, Soft, Tenderness (mild suprapubic) Back: Normal Inspection, CVA Tenderness (L) Extremity: Normal Capillary Refill, Normal Inspection, Normal Range of Motion, No Pedal Edema Neurologic/Psychiatric: Alert, Oriented x3, No Motor/Sensory Deficits, Normal Mood/Affect Skin: Normal Color, Warm/Dry Progress/Results/Core Measures Suspected Sepsis SIRS Temperature: Pulse: 91 Respiratory Rate: 17 Blood Pressure 105 /75 Mean: 85 Laboratory Tests 11/09/21 15:51: Creatinine 0.71 Results/Orders Lab Results Laboratory Tests Test 11/09/21 14:40 11/09/21 15:51 Range/Units Urine Color YELLOW Urine Clarity CLEAR Urine pH 6.0 5-9 Urine Specific [place] 1.020 1.016-1.022 Urine Protein 2+ H NEGATIVE Urine Glucose (UA) NEGATIVE NEGATIVE Urine Ketones NEGATIVE NEGATIVE Urine Nitrite POSITIVE H NEGATIVE Urine Bilirubin NEGATIVE NEGATIVE Urine Urobilinogen 0.2 < = 1.0 MG/DL Urine Leukocyte Esterase 2+ H NEGATIVE Urine RBC (Auto) 3+ H NEGATIVE Urine RBC NONE /HPF Urine WBC >100 H /HPF Urine Squamous Epithelial Cells 5-10 /HPF Urine Crystals NONE /LPF Urine Bacteria MODERATE H /HPF Urine Casts NONE /LPF Urine Mucus NEGATIVE /LPF Urine Culture Indicated YES Sodium Level 142 135-145 MMOL/L Potassium Level 3.5 L 3.6-5.0 MMOL/L Chloride Level 106 98-107 MMOL/L Carbon Dioxide Level 23 21-32 MMOL/L Anion Gap 13 5-14 MMOL/L Blood Urea Nitrogen 8 7-18 MG/DL Creatinine 0.71 0.60-1.30 MG/DL Estimat Glomerular Filtration Rate 99 BUN/Creatinine Ratio 11 Glucose Level 90 70-105 MG/DL Calcium Level 9.3 8.5-10.1 MG/DL My Orders Orders - BRIE GRIFFIN MD Basic Metabolic Panel (11/09/21 14:54) Ua Culture If Indicated (11/09/21 14:54) Ed Iv/Invasive Line Start (11/09/21 14:54) Ns Iv 1000 Ml (Sodium Chloride 0.9%) (11/09/21 15:00) Ketorolac Injection (Toradol Injection) (11/09/21 15:00) Ondansetron Injection (Zofran Injectio (11/09/21 15:00) Urine Culture (11/09/21 14:40) Ceftriaxone 1 Gm Pre-Mix (Rocephin 1 Gm (11/09/21 15:30) Medications Given in ED Current Medications Medications Dose Ordered Sig/Josué Route Start Time Stop Time Status Last Admin Dose Admin Ceftriaxone Sodium/Dextrose 50 ml @ 100 mls/hr ONCE ONCE IV 11/09/21 15:30 12 15:59 DC 11/09/21 15:58 100 MLS/HR Ketorolac Tromethamine 15 mg ONCE ONCE IVP 11/09/21 15:00 11/09/21 15:01 DC 11/09/21 15:57 15 MG Ondansetron HCl 8 mg ONCE ONCE IVP 11/09/21 15:00 11/09/21 15:01 DC 11/09/21 15:57 8 MG Vital Signs/I&O 11/09/21 14:28 Temp 36.7 Pulse 91 Resp 17 B/P (MAP) 105/75 (85) O2 Delivery Room Air Capillary Refill : Less Than 3 Seconds Blood Pressure Mean: 85 Departure Impression Primary Impression: Pyelonephritis Disposition: HOME, SELF-CARE Condition: Stable Departure-Patient Inst. Decision time for Depature: 16:14 Referrals: BENOIT MACHADO MD (PCP/Family) Primary Care Physician Patient Instructions: Kidney Infection Add. Discharge Instructions: Drink lots of fluids to stay well-hydrated. You can take [id number] Azo or Pyridium as directed on the box for bladder spasm/pain with urination. Ibuprofen 600 mg every 6-8 hours with food as needed for back pain and fever. Start your antibiotics tomorrow, Keflex 500 mg 3 times daily for 7 days. Return to the emergency room for reevaluation if you have worsening symptoms of back pain, fever, nausea vomiting or any other emergent concerning symptoms. Follow-up with your primary care physician as needed. Scripts Cephalexin (Cephalexin) 500 Mg Tablet 500 MG PO TID for 7 Days, #21 TAB Prov: BRIE GRIFFIN MD 11/09/21 BRIE GRIFFIN MD Nov 09, 2021 14:59
[2021-11-09] MEDS ORDERED: KETOROLAC 30 MG/ML VIAL IVP ONE (15:00)
[2021-11-09] MEDS ORDERED: ONDANSETRON 4 MG/2 ML (SDV) Z0FRAN IVP ONE (15:00)
[2021-11-09] MEDS ORDERED: NS IV 1000 ML 1,000 ML IV SCH (15:00)
[2021-11-09 15:08] LABS: BILIRUBIN,URINE NEGATIVE (NEGATIVE); CLARITY,URINE CLEAR; COLOR,URINE YELLOW; GLUCOSE, URINE (UA) NEGATIVE (NEGATIVE); KETONES,URINE NEGATIVE (NEGATIVE); LEUKOCYTE ESTERASE ,URINE 2+ (NEGATIVE); NITRITE,URINE POSITIVE (NEGATIVE); PROTEIN,URINE 2+ (NEGATIVE)
[2021-11-09 15:20] LABS: BACTERIA,URINE MODERATE /HPF; WBC,URINE >100 /HPF
[2021-11-09] MEDS ORDERED: cefTRIAXone 1 GM PRE-MIX 50 ML IV ONE (15:30)
[2021-11-09 16:05] LABS: POTASSIUM 3.5 MMOL/L (3.6-5.0)
[2021-11-09 16:07] LABS: CALCIUM 9.3 MG/DL (8.5-10.1)
[2021-11-09 16:11] LABS: CREATININE SERUM 0.71 MG/DL (0.60-1.30)
[2021-11-09] MEDS ORDERED: CEPH500T PO (16:15)
[2021-11-09 16:34] VITALS: BP 129/81
== END 2021-11-09 16:34 | disposition home or self-care (01) ==
LOC: EDUNIT# 14:22 → ER 14:23
DX: N12 Tubulo-interstitial nephritis, not specified as acute or chronic (principal)
CPT/HCPCS: 36415; 80048; 81000; 87077; 87088; 87186

== ENCOUNTER 2022-10-06 18:06 | Emergency (ER) | payer OTHER, BC ==
[~2022-10-06 18:06] MED LIST changes: +CEPH500T PO
[2022-10-06] MEDS ORDERED: NS IV 1000 ML 1,000 ML IV SCH (19:30)
--- NOTE | 2022-10-06 19:45 | Diagnostic Imaging Report ---
INDICATION: Dyspnea. EXAMINATION: AP view of the chest was obtained. COMPARISON: No previous study is available for comparison at this time. FINDINGS: Heart size and pulmonary vasculature are within normal limits, and the lungs are clear, bilaterally. IMPRESSION: Unremarkable chest. Dictated by: Dictated on workstation # [id number]
[2022-10-06 20:02] LABS: POTASSIUM 3.6 MMOL/L (3.6-5.0)
[2022-10-06 20:03] LABS: CALCIUM 8.7 MG/DL (8.5-10.1)
[2022-10-06 20:07] LABS: CREATININE SERUM 0.61 MG/DL (0.60-1.30)
--- NOTE | 2022-10-06 21:10 | ED General ---
General Chief Complaint: General Problems/Pain Stated Complaint: SOA/NAUSEA/DIARRHEA/VOMITING Nursing Triage Note: PT AMB TO FT WITH C/O SOB, ABD PAIN, COUGH AND ROJAS. PT SEEN AT [facility] PRIOR TO THIS VISIT AND WAS TOLD TO COME HERE FOR A CHEST XRAY AND FLUIDS. PT STATES HER HAS WALKING PNEUMONIA Source of Information: Patient History of Present Illness Date Seen by Provider: Oct 06, 2022 Time Seen by Provider: 18:30 Initial Comments Patient is a 27-year-old female who presents to the emergency department after being referred by urgent care who states she needed a chest x-ray and IV fluids. Patient is concerned she has "walking pneumonia" as that is what she states her currently has. She has not had a fever. She states she has had some mild shortness of air, generalized abdominal pain, cough, and headache. Patient states she was diagnosed with a UTI at the urgent care and given a shot of Rocephin at she is currently breast-feeding and they did not want to give her any oral antibiotics for it. She states she is to be seen at the clinic next 2 days for 2 more shots of Rocephin. Patient was given a prescription for azithromycin for her presumed "walking pneumonia". Allergies and Home Medications Allergies Coded Allergies: Sulfa (Sulfonamide Antibiotics) (Verified Allergy, Mild, 06/03/17) hyoscyamine (Verified Allergy, Mild, 06/03/17) linaclotide (Verified Allergy, Mild, 06/03/17) milk (Verified Allergy, Mild, 06/03/17) Patient Home Medication List Home Medication List Reviewed: Yes Cephalexin (Cephalexin) 500 Mg Tablet, 500 MG PO TID Prescribed by: BRIE GRIFFIN on 11/09/21 1615 Ibuprofen (Ibu) 600 Mg Tablet, 600 MG PO Q6H Prescribed by: BENOIT MACHADO on 09/17/18 0802 Review of Systems Review of Systems Constitutional: see HPI EENTM: see HPI Respiratory: see HPI Cardiovascular: no symptoms reported Gastrointestinal: see HPI Past Ilagnuu-Ldtrls-Jehiby Hx Patient Social History Tobacco Use?: No Use of E-Cig and/or Vaping dev: No Substance use?: No Alcohol Use?: Yes Alcohol Frequency: Rarely Pt feels they are or have been: No Immunizations Up To Date Tetanus Booster (TDap): Unknown PED Vaccines UTD: Yes Influenza Vaccine Up-to-Date: No; Not Current First/Initial COVID19 Vaccinat: DENIES Seasonal Allergies Seasonal Allergies: No Past Medical History Surgery/Hospitalization HX: C.DIFF COLONOSCOPY, BACK SURGERY Surgeries: Yes (BACK SURG (Laminectomy) AND COLONOSCOPY X2) Abdominal, Orthopedic Respiratory: No Cardiac: No Neurological: Yes Headaches /Migraines Sexually Transmitted Disease: No HIV/AIDS: No Genitourinary: No Gastrointestinal: Yes (Chronic abdominal pain) Colitis, C-Diff Musculoskeletal: Yes Chronic Back Pain Endocrine: No 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 4.0oz. 124.933417lt; 40.00 BMI Method:Stated General Appearance: No Apparent Distress, WD/WN HEENT: PERRL/EOMI, TMs Normal, Normal ENT Inspection, Pharynx Normal Neck: Full Range of Motion, Normal Inspection, Non Tender, Supple Respiratory: Chest Non Tender, Lungs Clear, Normal Breath Sounds, No Accessory Muscle Use, No Respiratory Distress Cardiovascular: Regular Rate, Rhythm Gastrointestinal: Normal Bowel Sounds Back: Normal Inspection, No Vertebral Tenderness Extremity: Normal Capillary Refill, Normal Inspection, Normal Range of Motion, Non Tender, No Calf Tenderness Neurologic/Psychiatric: Alert, Oriented x3, No Motor/Sensory Deficits, Normal Mood/Affect Skin: Normal Color, Warm/Dry Progress/Results/Core Measures Suspected Sepsis SIRS Temperature: Pulse: 115 Respiratory Rate: 14 Blood Pressure 130 /90 Mean: 103 Laboratory Tests 10/06/22 19:45: Creatinine 0.61 Results/Orders Lab Results Laboratory Tests Test 10/06/22 19:45 Range/Units Sodium Level 138 135-145 MMOL/L Potassium Level 3.6 3.6-5.0 MMOL/L Chloride Level 106 98-107 MMOL/L Carbon Dioxide Level 19 L 21-32 MMOL/L Anion Gap 13 5-14 MMOL/L Blood Urea Nitrogen 8 7-18 MG/DL Creatinine 0.61 0.60-1.30 MG/DL Estimat Glomerular Filtration Rate 125 BUN/Creatinine Ratio 13 Glucose Level 90 70-105 MG/DL Calcium Level 8.7 8.5-10.1 MG/DL My Orders Orders - WINIFRED MORE APRN Chest 1 View, Ap/Pa Only (10/06/22 19:18) Basic Metabolic Panel (10/06/22 19:18) Iv/Invasive Line Insertion .IV INSERT (10/06/22 19:18) Ns Iv 1000 Ml (Sodium Chloride 0.9%) (10/06/22 19:30) Vital Signs/I&O 10/06/22 10/06/22 18:28 21:30 Temp 38.5 37.0 Pulse 115 94 Resp 14 14 B/P (MAP) 130/90 (103) 132/87 10/06/22 23:59 Intake Total 1000 ml Balance 1000 ml Capillary Refill : Blood Pressure Mean: 103 Progress Note : Progress Note Patient is nontoxic and well-hydrated on exam. No adventitious lung sounds or increased work of breathing noted. Vital signs are reassuring. Patient is awake alert and oriented x4. Chest x-ray is acutely negative. BMP unremarkable. Patient was given IV fluids. No indication for further diagnostic testing at this time. Follow-up with PCP. Return precautions for urgent symptomology discussed. Patient verbalized understanding. Departure Impression Primary Impression: UTI (urinary tract infection) Qualified Codes: N30.00 - Acute cystitis without hematuria Additional Impression: URI, acute Disposition: HOME, SELF-CARE Condition: Stable Departure-Patient Inst. Decision time for Depature: 21:05 Referrals: BENOIT MACHADO MD (PCP/Family) Primary Care Physician Patient Instructions: Upper Respiratory Infection ED WINIFRED MORE APRN Oct 06, 2022 21:10
[2022-10-06 21:30] VITALS: BP 132/87
== END 2022-10-06 21:32 | disposition home or self-care (01) ==
LOC: EDUNIT# 18:06 → ER 18:08
DX: N39.0 Urinary tract infection, site not specified (principal); J06.9 Acute upper respiratory infection, unspecified; Z28.310 Unvaccinated for COVID-19
CPT/HCPCS: 36415; 71045; 80048; 99281

== ENCOUNTER 2023-09-04 21:19 | Emergency (ER) | payer OTHER, BC ==
[~2023-09-04] VITALS: Ht 167.7 cm; Wt 127.0 kg
[2023-09-04] MEDS ORDERED: ORPHENADRINE 60 MG/2 ML AMP (ED ONLY) IM STA (21:46)
[2023-09-04] MEDS ORDERED: CYCL10TA25 PO (21:51)
[2023-09-04] MEDS ORDERED: TRM50T PO (21:51)
[2023-09-04] MEDS ORDERED: PRD20T PO (21:51)
--- NOTE | 2023-09-04 21:53 | ED Back Pain ---
General Chief Complaint: General Problems/Pain Stated Complaint: SYATIC NERVE PAIN, RT LEG PAIN, Nursing Triage Note: PT AMB TO FT1 WITH CC OF R LEG PAIN AND R LOWER BACK PAIN SINCE THIS PM. PT STATES HAS HAD THIS PAIN BEFORE AND BELIEVES IT IS RELATED TO HER SCIATIC NERVE. PT REPORTS TAKING TYLENOL AND IBUPROFEN AT APPROX 1800. 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 DENIES INJURY (CHICO CHAPMAN) History of Present Illness Date Seen by Provider: Sep 04, 2023 Time Seen by Provider: 21:30 Initial Comments 28-year-old female presents for low back and right leg pain. She states that it began earlier today when she was leaning over to get a mop bucket. She had lumbar spine surgery for a herniated disc in 2014 at [facility]. She occasionally has recurrent radiculopathy in the right leg. She denies any bowel or bladder incontinence or retention. She has tried Tylenol, ibuprofen, and Lidoderm patches without improvement. Location: Lumbar Spine Timing/Duration: 4-6 Hours Severity: Moderate Pain/Injury Location: Back Radiation: Buttocks, Upper Legs Associated Symptoms: muscle spasms; No weakness, No numbness in legs/feet, No tingling in legs/feet, No sensory/motor loss; lower back pain; No loss of blad marco control, No loss of bowel control (CHICO CHAPMAN) Allergies and Home Medications Allergies Coded Allergies: Sulfa (Sulfonamide Antibiotics) (Verified Allergy, Mild, 06/03/17) hyoscyamine (Verified Allergy, Mild, 06/03/17) linaclotide (Verified Allergy, Mild, 06/03/17) milk (Verified Allergy, Mild, 06/03/17) Patient Home Medication List Home Medication List Reviewed: Yes (CHICO CHAPMAN) Cephalexin (Cephalexin) 500 Mg Tablet, 500 MG PO TID Prescribed by: BRIE GRIFFIN on 11/09/21 1615 Cyclobenzaprine HCl (Cyclobenzaprine HCl) 10 Mg Tablet, 10 MG PO Q8H PRN for SPASMS Prescribed by: CHICO CHAPMAN on 09/04/23 215 Ibuprofen (Ibu) 600 Mg Tablet, 600 MG PO Q6H Prescribed by: BENOIT MACHADO on 09/17/18 0802 Prednisone (Prednisone) 20 Mg Tab, 60 MG PO DAILY Prescribed by: CHICO CHAPMAN on 09/04/232150 Tramadol HCl (Tramadol HCl) 50 Mg Tablet, 50 MG PO Q6H PRN for PAIN Prescribed by: CHICO CHAPMAN on 09/04/232152 Review of Systems Constitutional: no symptoms reported, see HPI Musculoskeletal: see HPI, back pain (CHICO CHAPMAN) All Other Systems Reviewed Negative Unless Noted: Yes (CHICO CHAPMAN) Past Qzjhsus-Kzehge-Zlszfa Hx Patient Social History Tobacco Use?: No Substance use?: No Alcohol Use?: No (CHICO CHAPMAN) Immunizations Up To Date Tetanus Booster (TDap): Unknown PED Vaccines UTD: Yes First/Initial COVID19 Vaccinat: DENIES Second COVID19 Vaccination Alejandro: DENIES Third COVID19 Vaccination Date: DENIES (CHICO CHAPMAN) Seasonal Allergies Seasonal Allergies: No (CHICO CHAPMAN) Past Medical History Surgery/Hospitalization HX: C.DIFF COLONOSCOPY, BACK SURGERY Surgeries: Yes (BACK SURG (Laminectomy) AND COLONOSCOPY X2) Abdominal, Orthopedic Respiratory: No Cardiac: No Neurological: Yes Headaches /Migraines Sexually Transmitted Disease: No HIV/AIDS: No Genitourinary: No Gastrointestinal: Yes (Chronic abdominal pain) Colitis, C-Diff Musculoskeletal: Yes Chronic Back Pain Endocrine: No 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 4.0oz. 124.277846ad; 45.00 BMI Method:Stated General Appearance: No Apparent Distress Cardiovascular: Regular Rate, Rhythm, No Murmur, Normal Peripheral Pulses Respiratory: Chest Non Tender, Lungs Clear, Normal Breath Sounds Back: Normal Inspection, No CVA Tenderness, No Vertebral Tenderness, Decreased Range of Motion, Muscle Spasm; No Vertebral Tenderness; Other (antalgic gait when ambulating, able to toe and heel walk, LOM L spine secondary to pain. Power V/V L4-S1. ) Extremity: Normal Capillary Refill, Normal Inspection, Normal Range of Motion, Non Tender, No Calf Tenderness Neurologic/Psychiatric: Alert, Oriented x3, No Motor/Sensory Deficits, Normal Mood/Affect Skin: Normal Color, Warm/Dry (CHICO CHAPMAN) Progress/Results/Core Measures Results/Orders Vital Signs/I&O 09/04/23 09/04/23 21:27 22:13 Pulse 73 73 Resp 18 18 B/P (MAP) 147/92 (110) 147/92 Pulse Ox 98 98 O2 Delivery Room Air Room Air (JAY,AIMEE K DO) Blood Pressure Mean: 110 Progress Progress Note : Time: 21:30 Progress Note Patient assessed, will give Norflex 60 mg IM and tramadol 50 mg p.o. for the muscle spasms and pain. No indication for imaging at this time. Home conservative management reviewed with the patient, she feels she can continue to work. Discharge instructions and return precautions reviewed with her. All questions answered (CHICO CHAPMAN) Departure Impression Primary Impression: Low back pain Qualified Codes: M54.41 - Lumbago with sciatica, right side Additional Impression: Radicular pain of right lower extremity Disposition: 01 HOME, SELF-CARE Condition: Stable Departure-Patient Inst. Decision time for Depature: 21:50 (CHICO CHAPMAN) Referrals: BENOIT MACHADO MD (PCP/Family) Primary Care Physician Patient Instructions: Low Back Pain (DC), Radiculopathy (DC) Add. Discharge Instructions: Alternate heat and ice to your low back. And use the Lidoderm patches. Alternate between ibuprofen 800 mg and Tylenol 650 mg every 4 hours for pain. If your pain is not managed with the Tylenol and ibuprofen you can take the Ultram. Use the Flexeril every 8 hours for muscle spasms. Take the prednisone as prescribed. If your symptoms are not improving or worsen follow-up with your primary care provider or spine surgeon in [place]. Return to the emergency department for new, urgent healthcare needs. All discharge instructions reviewed with patient and/or family. Voiced underst anding. Scripts Tramadol HCl (Tramadol HCl) 50 Mg Tablet 50 MG PO Q6H PRN for PAIN, #20 TAB 0 Refills Prov: CHICO CHAPMAN 09/04/23 Prednisone (Prednisone) 20 Mg Tab 60 MG PO DAILY, #9 TAB 0 Refills Prov: CHICO CHAPMAN 09/04/23 Cyclobenzaprine HCl (Cyclobenzaprine HCl) 10 Mg Tablet 10 MG PO Q8H PRN for SPASMS, #30 TAB 0 Refills Prov: CHICO CHAPMAN 09/04/23 ATTENDING PHYSICIAN NOTE: I WAS PHYSICALLY PRESENT ER PHYSICIAN, BUT I WAS NOT INVOLVED IN ANY DECISION MAKING OR ANY CARE OF THIS PATIENT AND I AM NOT COLLABORATING PHYSICIAN (AIMEE THOMPSON DO) CHICO CHAPMAN Sep 04, 2023 21:53 AIMEE THOMPSON DO Sep 06, 2023 03:11
[2023-09-04 22:13] VITALS: BP 147/92
== END 2023-09-04 22:13 | disposition home or self-care (01) ==
LOC: EDUNIT# 21:19 → ER 21:22
DX: M54.16 Radiculopathy, lumbar region (principal); Z28.310 Unvaccinated for COVID-19
CPT/HCPCS: 99284

== ENCOUNTER → 2023-10-01 | Outpatient (CLI) | payer OTHER, BC ==
[~2023-10-01] VITALS: Ht 170.2 cm; Wt 109.1 kg
[~2023-10-01] MED LIST changes: +CITA10TA9 PO; +CYCL10TA25 PO; +MESA1.2T2 PO; +PRD20T PO; +TRM50T PO
== END | disposition home or self-care (01) ==
LOC: PREOP 05:46
PROVIDERS: ATTEND Otolaryngology Otolaryngology/Facial Plastic Surgery
DX: Z01.818 Encounter for other preprocedural examination (principal)

== ENCOUNTER 2023-10-09 06:44 | Day surgery (SDC) | payer OTHER, BC ==
[~2023-10-09] VITALS: Ht 170.2 cm; Wt 109.1 kg
[2023-10-09] VITALS (9 sets, daily range): BP systolic 117–138; BP diastolic 69–98
[2023-10-09] MEDS ORDERED: LACTATED RINGERS 1,000 ML 1,000 ML IV PRN (07:15)
[2023-10-09] MEDS ORDERED: LIDOCAINE 2% w/EPI 1:100,000 20 ML VIAL ONE (09:09)
[2023-10-09] MEDS ORDERED: proPOfol INJECTION 200 MG/20 ML VIAL IV ONE (09:16)
[2023-10-09] MEDS ORDERED: ONDANSETRON INJECTION 4 MG/2 ML (SDV) ONE (09:16)
[2023-10-09] MEDS ORDERED: GLYCOPYRROLATE INJ 0.2 MG/ML 2 ML VIAL ONE (09:16)
[2023-10-09] MEDS ORDERED: fentaNYL INJECTION 100 MCG/2 ML VIAL ONE (09:16)
[2023-10-09] MEDS ORDERED: dexAMETHasone INJ 10 MG/ML 1 ML VIAL ONE (09:16)
[2023-10-09] MEDS ORDERED: MIDAZOLAM INJ 2 MG/2 ML VIAL ONE (09:16)
[2023-10-09] MEDS ORDERED: LIDOCAINE PF 2% 5 ML VIAL ONE (09:16)
[2023-10-09] MEDS ORDERED: ROCURONIUM 50 MG/5 ML VIAL IV ONE (09:17)
--- NOTE | 2023-10-09 09:41 | Progress Note-Pre Operative ---
Pre-Operative Progress Note Date of Available H&P: Oct 09, 2023 Date H&P Reviewed: Oct 09, 2023 Time H&P Reviewed: 09:00 History & Physical: H&P Reviewed, Patient Examed, No changes noted Changes from last HP none Pre-Operative Diagnosis: Right Vocal Cord Lesion HEVER OSEGUERA MD Oct 09, 2023 09:40
--- NOTE | 2023-10-09 09:41 | Progress Note-Post Operative ---
Post-Operative Progess Note Surgeon (s)/[facility] Former (s) Surgeon HEVER OSEGUERA MD [facility] Former n/a Pre-Operative Diagnosis Right Vocal Cord Lesion Post-Operative Diagnosis same Post-Op Procedure Note Date of Procedure: Oct 09, 2023 Name of Procedure Performed: Direct Laryngosocpy with REmoval of Right Vocal Cord Lesion Description & Findings Description and Findings: n/a Anesthesia Type get Estimated Blood Loss minimal Packing none. Specimen(s) collected/removed right vocal cord lesion HEVER OSEGUERA MD Oct 09, 2023 09:41
[2023-10-09] MEDS ORDERED: PROMETHAZINE INJ 25 MG/ML VIAL IV PRN (09:45)
[2023-10-09] MEDS ORDERED: HYDROcodone/ACETAMINOPHEN 5 MG/325 MG TABLET PO PRN (09:45)
[2023-10-09] MEDS ORDERED: NEOSTIGMINE 1 MG/1ML 10 ML VIAL ONE (09:54)
[2023-10-09] MEDS ORDERED: SEVOFLURANE (ULTANE) 15 ML INHAL SOLN ONE (10:15)
[2023-10-09] MEDS ORDERED: SUGAMMADEX INJ 100 MG/ML 5 ML VIAL IV ONE (10:15)
[2023-10-09] MEDS ORDERED: LIDOCAINE 2% w/EPI 1:100,000 20 ML VIAL TOP ONE (10:25)
[2023-10-09] MEDS ORDERED: ONDANSETRON INJECTION 4 MG/2 ML (SDV) IVP PRN (10:30)
[2023-10-09] MEDS ORDERED: morphine INJ 10 MG/ML 1ML (SYR OR VIAL) IVP ONE (10:30)
[2023-10-09] MEDS ORDERED: HYDROmorphone INJECTION 2 MG/ML VIAL IV ONE (10:30)
[2023-10-09] MEDS ORDERED: ACHD5005 PO (11:04)
--- NOTE | 2023-10-09 14:17 | Anesthesia-General Post-Op ---
General Patient Condition Mental Status/LOC: Same as Preop Cardiovascular: Satisfactory Nausea/Vomiting: Absent Respiratory: Satisfactory Pain: Controlled Complications: Absent Post Op Complications Complications None Follow Up Care/Instructions Patient Instructions None needed. Anesthesia/Patient Condition Patient Condition Patient was doing well this morning after the procedure with no complaints, stable vital signs, no apparent adverse anesthesia problems. No complications reported per nursing. ANKITA BARRETT DO Oct 09, 2023 14:17
== END 2023-10-09 10:40 | disposition home or self-care (01) ==
LOC: SDC 06:44
PROVIDERS: ATTEND Otolaryngology Otolaryngology/Facial Plastic Surgery
DX: J38.3 Other diseases of vocal cords (principal); E66.9 Obesity, unspecified; Z68.37 Body mass index [BMI] 37.0-37.9, adult
CPT/HCPCS: 84703; 87081